=== PATIENT | female | born 1970 | race Caucasian/White ===

== ENCOUNTER 2021-11-05 17:51 | Emergency (ER) | payer MEDICARE ==
[2021-11-05] MEDS ORDERED: TORAdol 30 mg Injection IV ONE (18:24)
[2021-11-05] MEDS ORDERED: Zofran 4 MG/2 ML VIAL IV ONE (18:24)
[2021-11-05] MEDS ORDERED: Hydromorphone 1 mg/ml Injection IV ONE (18:24)
[2021-11-05] MEDS ORDERED: Sodium Chloride 0.9% 1000 ML 1,000 ML IV STA (18:24)
--- NOTE | 2021-11-05 18:29 | ERPHSYRPT ---
- History of Present Illness Time Seen by Provider: 11/05/21 18:15 Historian: patient Exam Limitations: no limitations Patient Subjective Stated Complaint: right flank pain that radiates to the front lower abdomen Triage Nursing Assessment: Pt brought to the ER by her niece, hypertensive, rates pain as 7/10, pain with palpatation to the right flank and right lower abdomen, c/o of constant pain after urination, hx of kidney stones, hematuria, pulses normal, skin n/w/d, denies N&V, last BM yesterday, last intake 3 hours ago Physician History: This is a 51-year-old white female patient of Dr. Shirley who has a history of type 2 diabetes, CHF, coronary artery disease, hypertension and elevated cholesterol. She also has had an appendectomy in the past. She has a history of nephrolithiasis and ureterolithiasis in the past and presents with worsening pain in the right flank which radiates around into the right lower quadrant/groin. Approximately 1 year ago she had similar symptoms and it was ureterolithiasis causing the problem. Patient rates the pain at a 7 out of 10. She has had no fever. She had no diarrhea. She has no chest pain. She has no shortness of breath. Patient believes she has some hematuria. Her symptoms worsen after she urinates. Timing/Duration: week(s) (1), intermittent, worse Quality: sharpness, stabbing Abdominal Pain Onset Location: flank (Right flank) Pain Radiation: RLQ, groin Severity of Pain-Max: moderate Severity of Pain-Current: moderate Modifying Factors: Improves With: urinating (Worsens) Associated Symptoms: nausea Allergies/Adverse Reactions: Penicillins Allergy (Verified 11/05/21 18:11) Home Medications: Albuterol Sulfate [Albuterol Sulfate Hfa] 2 inh PO Q4H 11/05/21 [History] Amitriptyline HCl 25 mg [Elavil 25 mg] 25 mg PO DAILY 11/05/21 [History] Amlodipine Besylate 2.5 mg PO DAILY 11/05/21 [History] Aripiprazole 10 mg [Abilify 10 MG] 10 mg PO DAILY 11/05/21 [History] Atorvastatin Calcium [Lipitor] 80 mg PO DAILY 11/05/21 [History] Gabapentin [Neurontin] 600 mg PO QID 11/05/21 [History] Meloxicam 7.5 mg PO DAILY 11/05/21 [History] Metformin HCl Xr 500 mg [Glucophage XR 500 MG] 500 mg PO DAILY 11/05/21 [History] Metoprolol Succinate 25 mg Xl* [Toprol-Xl 25MG Tablets] 25 mg PO DAILY 11/05/21 [History] Omeprazole 40 mg PO DAILY 11/05/21 [History] Sucralfate 1 gm [Carafate 1 GM] 1 g PO QID 11/05/21 [History] Tizanidine HCl 2 mg PO BID 11/05/21 [History] Trazodone HCl 50 mg [Desyrel 50 mg] 50 mg PO DAILY 11/05/21 [History] Travel Risk - International Travel Have you traveled outside of the country in past 3 weeks: No - Coronavirus Screening Are you exhibiting any of the following symptoms?: No Close contact with a COVID-19 positive Pt in past 14-21 Days: No - Vaccine Status Have you recieved a Covid-19 vaccination: Yes [employer]illing Machine [employer]: Moderna - Vaccination Dates Date of 2cond Vaccination (if applicable): 01/2021 - Review of Systems Constitutional: No Symptoms Eyes: No Symptoms Ears, Nose, & Throat: No Symptoms Respiratory: No Symptoms Cardiac: No Symptoms Abdominal/Gastrointestinal: Abdominal Pain Genitourinary Symptoms: Hematuria, Flank Pain (Right side) Musculoskeletal: No Symptoms Skin: No Symptoms Neurological: No Symptoms Psychological: No Symptoms Endocrine: No Symptoms Hematologic/Lymphatic: No Symptoms Immunological/Allergic: No Symptoms All Other Systems: Reviewed and Negative - Past Medical History Pertinent Past Medical History: Yes Cardiac History: Congestive Heart Failure, Coronary Artery Disease, High Cholesterol, Hypertension Endocrine Medical History: Diabetes Type II Other Medical History: hypocalcemia - Past Surgical History Past Surgical History: Yes Gastrointestinal: Appendectomy, Cholecystectomy Musculoskeletal: Joint Replacement, Orthopedic Surgery Female Surgical History: Section - Social History Smoking Status: Current every day smoker Exposure to second hand smoke: Yes Drug Use: marijuana Patient Lives Alone: No - Female History Hx Now: No - Nursing Vital Signs Nursing Vital Signs: Initial Vital Signs Temperature 97.6 F 11/05/21 17:55 Pulse Rate 84 11/05/21 17:55 Blood Pressure 159/92 11/05/21 17:55 O2 Sat by Pulse Oximetry 97 11/05/21 17:55 Pain Scale Pain Intensity 2 - Physical Exam SpO2: 97 - Course Nursing assessment & vital signs reviewed: Yes Ordered Tests: Active Orders 24 hr Category Date Time Status IV Insertion STAT Care 11/05/21 18:24 Active ABDOMEN AND PELVIS W/0 CONTRAS [CT] Stat Exams 11/05/21 18:25 Taken AMYLASE Stat Lab 11/05/21 18:05 Completed CBC W DIFF Stat Lab 11/05/21 18:05 Completed CMP Stat Lab 11/05/21 18:05 Completed CULTURE,URINE Stat Lab 11/05/21 17:58 Received LIPASE Stat Lab 11/05/21 18:05 Completed Lactic Acid Stat Lab 11/05/21 18:24 Completed UA W/RFX UR CULTURE Stat Lab 11/05/21 17:58 Completed Medication Summary Generic Name Dose Route Start Last Admin Trade Name Freq PRN Reason Stop Dose Admin Ceftriaxone Sodium/Dextrose 1 g in 50 mls @ 100 mls/hr 11/05/21 20:12 Rocephin 1 Gm-D5w 50 Ml Bag IV 11/05/21 20:41 STAT STA Discontinued Medications Generic Name Dose Route Start Last Admin Trade Name Freq PRN Reason Stop Dose Admin Hydromorphone HCl 1 mg 11/05/21 18:24 11/05/21 18:52 Hydromorphone 1 Mg/1ml Inj 1 Mg/Ml Syringe IV 11/05/21 18:25 1 mg STAT ONE Administration Hydromorphone HCl Confirm 11/05/21 18:46 Hydromorphone 1 Mg/1ml Inj 1 Mg/Ml Syringe Administered 11/05/21 18:47 Dose 1 mg .ROUTE .STK-MED ONE Sodium Chloride 1,000 mls @ 999 mls/hr 11/05/21 18:24 11/05/21 18:51 Sodium Chloride 0.9% 1000 Ml IV 11/05/21 19:24 999 mls/hr .Q1H1M STA Administration Sodium Chloride Confirm 11/05/21 18:46 Sodium Chloride 0.9% 1000 Ml Administered 11/05/21 18:47 Dose 1,000 mls @ ud .ROUTE .STK-MED ONE Ketorolac Tromethamine 30 mg 11/05/21 18:24 11/05/21 18:51 Ketorolac Tromethamine 30 Mg/Ml Inj IV 11/05/21 18:25 30 mg STAT ONE Administration Ketorolac Tromethamine Confirm 11/05/21 18:46 Ketorolac Tromethamine 30 Mg/Ml Inj Administered 11/05/21 18:47 Dose 30 mg .ROUTE .STK-MED ONE Ondansetron HCl 4 mg 11/05/21 18:24 11/05/21 18:51 Ondansetron Hcl 4 Mg/2 Ml Vial IV 11/05/21 18:25 4 mg STAT ONE Administration Ondansetron HCl Confirm 11/05/21 18:46 Ondansetron Hcl 4 Mg/2 Ml Vial Administered 11/05/21 18:47 Dose 4 mg .ROUTE .STK-MED ONE Lab/Rad Data: Laboratory Result Diagrams 11/05/21 18:05 11/05/21 18:05 Laboratory Results 11/05/21 11/05/21 11/05/21 Range/Units 18:24 18:05 18:05 WBC 8.1 (4.0-10.5) K/mm3 RBC 4.88 (4.1-5.4) M/mm3 Hgb 14.5 (12.0-16.0) gm/dl Hct 44.6 (35-47) % MCV 91.4 (78-100) fl MCH 29.7 (26-32) pg MCHC 32.5 (32-36) g/dl RDW 13.2 (11.5-14.0) % Plt Count 280 (150-450) K/mm3 MPV 10.4 (7.5-11.0) fl Gran % 49.8 (36.0-66.0) % Eos # (Auto) 0.23 (0-0.5) Absolute Lymphs (auto) 2.87 (1.0-4.6) Absolute Monos (auto) 0.89 (0.0-1.3) Lymphocytes % 35.6 (24.0-44.0) % Monocytes % 11.0 (0.0-12.0) % Eosinophils % 2.9 (0.00-5.0) % Basophils % 0.7 (0.0-0.4) % Absolute Granulocytes 4.01 (1.4-6.9) Basophils # 0.06 (0-0.4) Sodium 140 (137-145) mmol/L Potassium 4.0 (3.5-5.1) mmol/L Chloride 104 (98-107) mmol/L Carbon Dioxide 25 (22-30) mmol/L Anion Gap 15.2 H (5-15) MEQ/L BUN 16 (7-17) mg/dL Creatinine 0.88 (0.52-1.04) mg/dL Estimated GFR > 60.0 ML/MIN Glucose 104 (74-106) mg/dL Lactic Acid 1.0 (0.4-2.0) Calcium 9.5 (8.4-10.2) mg/dL Total Bilirubin 0.50 (0.2-1.3) mg/dL AST 29 (14-36) U/L ALT 31 (0-35) U/L Alkaline Phosphatase 101 (38-126) U/L Serum Total Protein 7.6 (6.3-8.2) g/dL Albumin 4.5 (3.5-5.0) g/dL Amylase 59 (30-110) U/L Lipase 334 H (23-300) U/L Urine Color (YELLOW) Urine Appearance (CLEAR) Urine pH (5-6) Ur Specific [place] (1.005-1.025) Urine Protein (Negative) Urine Ketones (NEGATIVE) Urine Blood (0-5) Chucho/ul Urine Nitrite (NEGATIVE) Urine Bilirubin (NEGATIVE) Urine Urobilinogen (0-1) mg/dL Ur Leukocyte Esterase (NEGATIVE) Urine WBC (Auto) (0-5) /HPF Urine RBC (Auto) (0-2) /HPF U Hyaline Cast (Auto) (0-2) /LPF U Epithel Cells (Auto) (FEW) /HPF Urine Bacteria (Auto) (NEGATIVE) /HPF Urine Mucus (Auto) (NEGATIVE) /HPF Urine Culture Reflexed (NO) Urine Glucose (NEGATIVE) mg/dL 11/05/21 Range/Units 17:58 WBC (4.0-10.5) K/mm3 RBC (4.1-5.4) M/mm3 Hgb (12.0-16.0) gm/dl Hct (35-47) % MCV (78-100) fl MCH (26-32) pg MCHC (32-36) g/dl RDW (11.5-14.0) % Plt Count (150-450) K/mm3 MPV (7.5-11.0) fl Gran % (36.0-66.0) % Eos # (Auto) (0-0.5) Absolute Lymphs (auto) (1.0-4.6) Absolute Monos (auto) (0.0-1.3) Lymphocytes % (24.0-44.0) % Monocytes % (0.0-12.0) % Eosinophils % (0.00-5.0) % Basophils % (0.0-0.4) % Absolute Granulocytes (1.4-6.9) Basophils # (0-0.4) Sodium (137-145) mmol/L Potassium (3.5-5.1) mmol/L Chloride (98-107) mmol/L Carbon Dioxide (22-30) mmol/L Anion Gap (5-15) MEQ/L BUN (7-17) mg/dL Creatinine (0.52-1.04) mg/dL Estimated GFR ML/MIN Glucose (74-106) mg/dL Lactic Acid (0.4-2.0) Calcium (8.4-10.2) mg/dL Total Bilirubin (0.2-1.3) mg/dL AST (14-36) U/L ALT (0-35) U/L Alkaline Phosphatase (38-126) U/L Serum Total Protein (6.3-8.2) g/dL Albumin (3.5-5.0) g/dL Amylase (30-110) U/L Lipase (23-300) U/L Urine Color YELLOW (YELLOW) Urine Appearance SLIGHTLY CLOUDY (CLEAR) Urine pH 5.0 (5-6) Ur Specific [place] 1.018 (1.005-1.025) Urine Protein NEGATIVE (Negative) Urine Ketones NEGATIVE (NEGATIVE) Urine Blood SMALL (0-5) [place]ucho/ul Urine Nitrite NEGATIVE (NEGATIVE) Urine Bilirubin NEGATIVE (NEGATIVE) Urine Urobilinogen NEGATIVE (0-1) mg/dL Ur Leukocyte Esterase MODERATE (NEGATIVE) Urine WBC (Auto) 3-5 (0-5) /HPF Urine RBC (Auto) 6-10 (0-2) /HPF U Hyaline Cast (Auto) 0-2 (0-2) /LPF U Epithel Cells (Auto) RARE (FEW) /HPF Urine Bacteria (Auto) FEW (NEGATIVE) /HPF Urine Mucus (Auto) SLIGHT (NEGATIVE) /HPF Urine Culture Reflexed YES (NO) Urine Glucose NEGATIVE (NEGATIVE) mg/dL - Progress Progress: improved Progress Note: 11/05/21 19:37 CAT scan of the abdomen pelvis without contrast shows no renal stones or evidence of obstructive uropathy. The remaining abdominal and pelvic CT scan is negative. Counseled pt/family regarding: lab results, diagnosis, need for follow-up, rad results - Departure Departure Disposition: Home Clinical Impression: Right sided abdominal pain, Right flank pain, UTI (urinary tract infection) Condition: Stable Critical Care Time: No Referrals: KILLIAN SHIRLEY DO [Primary Care Provider] - Follow up/PCP as directed Additional Instructions: Drink plenty of fluids. Take medication as prescribed. Follow-up with your [facility] physician for further management. Prescriptions: Smz/Tmp Ds Tablet [Bactrim Ds Tablet] 1 udtab PO BID #14 tablet Phenazopyridine HCl 200 mg [Pyridium 200 mg] 200 mg PO TID #6 tablet
[2021-11-05] MEDS ORDERED: Zofran 4 MG/2 ML VIAL ONE (18:46)
[2021-11-05] MEDS ORDERED: TORAdol 30 mg Injection ONE (18:46)
[2021-11-05] MEDS ORDERED: Hydromorphone 1 mg/ml Injection ONE (18:46)
[2021-11-05] MEDS ORDERED: Sodium Chloride 0.9% 1000 ML 1,000 ML ONE (18:46)
[2021-11-05 19:11] LABS: Absolute Neutrophil Ct (ANC) 4.01 (1.4-6.9); Basophil (Absolute #) 0.06 (0-0.4); Eosinophil % 2.9 % (0.00-5.0); Eosinophil (Absolute #) 0.23 (0-0.5); Hematocrit 44.6 % (35-47); Hemoglobin 14.5 gm/dl (12.0-16.0); Lymphocyte (Absolute #) 2.87 (1.0-4.6); Lymphocytes % 35.6 % (24.0-44.0); Mean Cell Volume 91.4 fl (78-100); Mean Corpuscular Hemoglobin 29.7 pg (26-32); Mean Corpuscular Hgb Concent. 32.5 g/dl (32-36); Mean Platelet Volume 10.4 fl (7.5-11.0); Monocyte (Absolute #) 0.89 (0.0-1.3); Neutrophil % 49.8 % (36.0-66.0); Platelet Count 280 K/mm3 (150-450); Red Blood Count 4.88 M/mm3 (4.1-5.4); Red Cell Distribution Width 13.2 % (11.5-14.0); White Blood Count 8.1 K/mm3 (4.0-10.5)
[2021-11-05 19:24] LABS: ALBUMIN 4.5 g/dL (3.5-5.0); ALKALINE PHOSPHATASE 101 U/L (38-126); AMYLASE 59 U/L (30-110); ANION GAP 15.2 MEQ/L (5-15); BLOOD UREA NITROGEN 16 mg/dL (7-17); CHLORIDE 104 mmol/L (98-107); Calcium 9.5 mg/dL (8.4-10.2); Carbon Dioxide 25 mmol/L (22-30); Creatinine 1 0.88 mg/dL (0.52-1.04); EST GLOMERULAR FILTRATION RATE > 60.0 ML/MIN; Glucose 104 mg/dL (74-106); LIPASE 334 U/L (23-300); SGOT/AST 29 U/L (14-36); SGPT/ALT 31 U/L (0-35); SODIUM 140 mmol/L (137-145); Total Protein 7.6 g/dL (6.3-8.2)
[2021-11-05 19:51] LABS: Appearance SLIGHTLY CLOUDY (CLEAR); Bacteria FEW /HPF (NEGATIVE); Bilirubin NEGATIVE (NEGATIVE); Blood SMALL Ery/ul (0-5); Epithelial Cells RARE /HPF (FEW); Glucose NEGATIVE (NEGATIVE); Hyaline Casts 0-2 /LPF (0-2); Ketones NEGATIVE (NEGATIVE); Leukocyte Esterase MODERATE (NEGATIVE); Mucus SLIGHT /HPF (NEGATIVE); Nitrite NEGATIVE (NEGATIVE); Protein,Urine Dip NEGATIVE (Negative); Specific Gravity 1.018 (1.005-1.025); Urobilinogen NEGATIVE mg/dL (0-1)
[2021-11-05 20:12] VITALS: BP 107/66; PULSE 64
[2021-11-05] MEDS ORDERED: ROCEPHIN 1 Gm-D5w 50 ml Bag** 1 G/50 ML IVPB IV STA (20:12)
[2021-11-05] MEDS ORDERED: ROCEPHIN 1 Gm-D5w 50 ml Bag** 1 G/50 ML IVPB IV ONE (20:13)
[2021-11-05 20:14] VITALS: O2SAT 97
--- NOTE | 2021-11-06 09:02 | XRAY ---
Indication: Right flank and back pain one week. History kidney stones. Multiple contiguous axial images obtained through the abdomen and pelvis without contrast using renal stone protocol. Comparison: None Lung bases demonstrates mild subsegmental atelectasis/scarring and small left lower lobe bleb. No infiltrate or effusion. Heart is not enlarged. No renal calculus or evidence for obstructive uropathy in either system. Noncontrasted stomach and bowel loops nonobstructed. Appendectomy and cholecystectomy reported. No free fluid/air. Remaining liver, pancreas, spleen, adrenal glands, kidneys, ureters, bladder, and uterus are unremarkable for noncontrast exam. Moderate scattered vascular calcifications without AAA. Osseous structures intact. No ventral or inguinal hernias. Impression: 1. Negative renal calculus or evidence for obstructive uropathy. 2. Remaining CT abdomen/pelvis without contrast exam is negative.
== END 2021-11-05 20:27 | disposition home or self-care (01) ==
LOC: ED 17:51
DX: N39.0 Urinary tract infection, site not specified (principal); R10.31 Right lower quadrant pain; I11.0 Hypertensive heart disease with heart failure; I50.9 Heart failure, unspecified; I25.10 Atherosclerotic heart disease of native coronary artery without angina pectoris; E78.5 Hyperlipidemia, unspecified; E11.9 Type 2 diabetes mellitus without complications; Z79.84 Long term (current) use of oral hypoglycemic drugs; Z87.442 Personal history of urinary calculi; Z72.0 Tobacco use; Z79.899 Other long term (current) drug therapy
CPT/HCPCS: 36000; 36415; 74176; 80053; 81001; 82150; 83605; 83690; 85025; 87086; 96374; 96375; 99284; J0696; J1170; J1885; J2405

== ENCOUNTER 2022-04-08 12:34 | Inpatient (IN) | payer MEDICARE ==
[2022-04-08] MEDS ORDERED: DUONEB 0.5-3 MG/3 ml Neb IH ONE ×2 (12:48→13:12)
[2022-04-08] MEDS ORDERED: SUBLIMAZE 100 MCG/2 ML IV ONE (12:49)
[2022-04-08] MEDS ORDERED: Zofran 4 MG/2 ML VIAL IV ONE (12:49)
[2022-04-08] MEDS ORDERED: Sodium Chloride 0.9% 1000 ML 1,000 ML IV STA (12:49)
[2022-04-08] MEDS ORDERED: TYLENOL 325 MG PO STA (12:51)
[2022-04-08] MEDS ORDERED: Zofran 4 MG/2 ML VIAL ONE (13:03)
[2022-04-08] MEDS ORDERED: SUBLIMAZE 100 MCG/2 ML ONE (13:04)
[2022-04-08] MEDS ORDERED: Sodium Chloride 0.9% 1000 ML 1,000 ML ONE (13:05)
[2022-04-08] MEDS ORDERED: TYLENOL 325 MG ONE (13:05)
[2022-04-08 13:26] LABS: Absolute Neutrophil Ct (ANC) 4.06 x10^3/uL (1.4-6.9); Basophil (Absolute #) 0.02 x10^3/uL (0-0.4); Hematocrit 42.4 % (35-47); Hemoglobin 13.4 g/dL (12.0-16.0); Lymphocyte (Absolute #) 0.63 x10^3/uL (1.0-4.6); Lymphocytes % 12.5 % (24.0-44.0); Mean Cell Volume 91.4 fL (78-100); Mean Corpuscular Hemoglobin 28.9 pg (26-32); Mean Corpuscular Hgb Concent. 31.6 g/dL (32-36); Mean Platelet Volume 9.9 fL (7.5-11.0); Monocyte (Absolute #) 0.23 x10^3/uL (0.0-1.3); Monocytes % 4.6 % (0.0-12.0); Neutrophil % 80.5 % (36.0-66.0); Platelet Count 203 x10^3/uL (150-450); Red Blood Count 4.64 x10^6/uL (4.1-5.4); Red Cell Distribution Width 12.8 % (11.5-14.0)
[2022-04-08 13:34] LABS: A-aADO2 539; ABG HEMOGLOBIN 13.1; ABG POTASSIUM 3.1 (3.5-5.1); ARTERIAL BLD GAS O2 SATURATION 99.2 % (95-100); ARTERIAL BLOOD GAS BASE EXCESS 0.6 (-2.0-2.0); ARTERIAL BLOOD GAS FIO2 100 %; ARTERIAL BLOOD GAS PCO2 47 mmHg (35-45); ARTERIAL BLOOD GAS PO2 115 mmHg (75-100); ARTERIAL BLOOD GAS pH 7.36 (7.35-7.45); CARBOXYHEMOGLOBIN 3.6 % THgb (0.0-6.9); HCO3- 26.6 (22-28); HGB O2 SAT 94.5 g/dF (94-100)
[2022-04-08 13:35] LABS: ABG SITE RIGHT BRACHIAL
--- NOTE | 2022-04-08 13:41 | ERPHSYRPT ---
- History of Present Illness Time Seen by Provider: 04/08/22 12:35 Source: patient, EMS Patient Subjective Stated Complaint: Pt was found sitting on a porch that she thought was for sale or rent which it wasn't and stated that she had been coloring a picture and there wasn't a picture found, pt was at 80% oxygen and so she was placed on oxygen until she got placed on the non rebreather to get her oxygen up to 93%, Triage Nursing Assessment: Pt brought to the ER by EMS, tachycardic, febrile, rates chronic back pain as 06/26, oxygen drops as soon as taken off or lower o xygen concentration, crackles heard in almost complete right, crackles in left base, wheezing, pulses normal, skin flushed/hot/dry, A&O x4 now Physician History: 50 years old female with history of tobacco abuse, hypertension, hyperlipidemia presented in the ER via EMS with chief complaint of altered mental status. Apparently patient was sitting in somebody's porch which she thought that houses for sale and it was actually not. She was also coloring a picture which was not there on EMS arrival her oxygen saturation was in 80s. She is given Solu-Medrol and DuoNeb, placed on nonrebreather and on presentation is around 93%. Patient also has a low-grade fever 100.1, reports that she got caught and pulled over. She also reports being working outside in the yard for the last few days. Patient is not confused on presentation and answering most of the questions a ppropriately. But according to friend she was not acting herself since yesterday. Denies any chest pain or palpitations. No abdominal pain nausea or vomiting. Timing/Duration: today Associated Symptoms: shortness of breath, fever, weakness Allergies/Adverse Reactions: Penicillins Allergy (Verified 04/08/22 12:58) Home Medications: Albuterol Sulfate [Albuterol Sulfate Hfa] 2 inh PO Q4HPRN PRN 11/05/21 [History] Amitriptyline HCl 25 mg [Elavil 25 mg] 25 mg PO HS 11/05/21 [History] Amlodipine Besylate 2.5 mg PO DAILY 11/05/21 [History] Aripiprazole 10 mg [Abilify 10 MG] 10 mg PO DAILY 11/05/21 [History] Atorvastatin Calcium [Lipitor] 80 mg PO HS 11/05/21 [History] Gabapentin [Neurontin] 600 mg PO QID 11/05/21 [History] Meloxicam 7.5 mg PO DAILY 11/05/21 [History] Metformin HCl Xr 500 mg [Glucophage XR 500 MG] 500 mg PO EVENING MEAL 11/05/21 [History] Metoprolol Succinate 25 mg Xl* [Toprol-Xl 25MG Tablets] 25 mg PO DAILY 11/05/21 [History] Omeprazole 40 mg PO DAILY 11/05/21 [History] Sucralfate 1 gm [Carafate 1 GM] 1 g PO QID 11/05/21 [History] Tizanidine HCl 2 mg PO BID 11/05/21 [History] Trazodone HCl 50 mg [Desyrel 50 mg] 50 mg PO HS 11/05/21 [History] Aspirin [Nish Chewable Aspirin] 81 mg PO DAILY 01/12/22 [History] Levothyroxine Sodium 25 Mcg [Synthroid 25 Mcg] 25 mcg PO DAILY 04/08/22 [History] clonazePAM [Clonazepam] 0.5 mg PO BID 04/08/22 [History] Travel Risk - International Travel Have you traveled outside of the country in past 3 weeks: No - Coronavirus Screening Are you exhibiting any of the following symptoms?: Yes Symptoms: Fever Close contact with a COVID-19 positive Pt in past 14-21 Days: No - Vaccine Status Have you recieved a Covid-19 vaccination: Yes Clerical Assistant: Moderna - Vaccination Dates Date of 2cond Vaccination (if applicable): 01/2021 - Review of Systems Constitutional: Fever, Fatigue, Weakness Eyes: No Symptoms Ears, Nose, & Throat: No Symptoms Respiratory: Dyspnea, Dyspnea on Exertion (LUGO) Cardiac: No Symptoms Abdominal/Gastrointestinal: No Symptoms Genitourinary Symptoms: No Symptoms Musculoskeletal: Back Pain Skin: No Symptoms Neurological: No Symptoms Endocrine: No Symptoms Hematologic/Lymphatic: No Symptoms Immunological/Allergic: No Symptoms - Past Medical History Pertinent Past Medical History: Yes Neurological History: No Pertinent History ENT History: Cataracts, Glaucoma Cardiac History: Congestive Heart Failure, Coronary Artery Disease, High Cholesterol, Hypertension Respiratory History: CHF, COPD Endocrine Medical History: Diabetes Type II Musculoskeletal History: No Pertinent History GI Medical History: No Pertinent History History: No Pertinent History Psycho-Social History: No Pertinent History Female Reproductive Disorders: No Pertinent History Other Medical History: hypocalcemia - Past Surgical History Past Surgical History: Yes Neuro Surgical History: No Pertinent History Cardiac: Cardiac Catheterization Respiratory: No Pertinent History Gastrointestinal: Appendectomy, Cholecystectomy Genitourinary: No Pertinent History Musculoskeletal: Joint Replacement, Orthopedic Surgery Female Surgical History: Section Other Surgical History: knee and shoulder surgery, carpal tunnel, coccyx removed - Social History Smoking Status: Current every day smoker How long have you smoked: age 10 Exposure to second hand smoke: Yes Drug Use: marijuana Patient Lives Alone: No - Nursing Vital Signs Nursing Vital Signs: Initial Vital Signs Temperature 100.1 F 04/08/22 12:41 Pulse Rate 134 H 04/08/22 12:41 Respiratory Rate 23 04/08/22 12:41 Blood Pressure 127/70 04/08/22 12:41 O2 Sat by Pulse Oximetry 96 04/08/22 12:41 Pain Scale Pain Intensity 4 - Physical Exam General Appearance: no apparent distress, alert Eye Exam: PERRL/EOMI, eyes nml inspection Ears, Nose, Throat Exam: normal ENT inspection, TMs normal, pharynx normal, moist mucous membranes Neck Exam: normal inspection, non-tender, supple, full range of motion Respiratory Exam: diminished breath sounds, accessory muscle use, c rackles/rales, rhonchi, wheezing Cardiovascular Exam: normal heart sounds, tachycardia Gastrointestinal/Abdomen Exam: soft, normal bowel sounds, No tenderness Back Exam: normal inspection, normal range of motion Extremity Exam: normal inspection, normal range of motion Neurologic Exam: alert, oriented x 3, cooperative, 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 nml as tested, sensation nml, No normal mood/affect, No motor deficits Skin Exam: normal color SpO2 Interpretation: normal SpO2: 93 O2 Delivery: Room Air Ordered Tests: Medication Summary Generic Name Dose Route Start Last Admin Trade Name Freq PRN Reason Stop Dose Admin Acetaminophen 650 mg 04/08/22 16:49 Acetaminophen 325 Mg Tablet PO 05/08/22 16:48 Q4H PRN PRN PAIN AND/OR FEVER Hydrocodone Bitart/Acetaminophen 1 tab 04/09/22 11:34 04/11/22 09:38 Hydrocodone/Apap 5/325 Mg Tablet PO 04/14/22 11:33 1 tab TID PRN PRN Administration PAIN Albuterol Sulfate 2 puff 04/09/22 07:27 Albuterol Common Canister Inhaler 05/09/22 07:26 Q4HPRN PRN SHORTNESS OF BREATH/WHEEZING Albuterol/Ipratropium 3 ml 04/09/22 15:00 04/11/22 17:57 Ipratropium/Albuterol Sulfate 3 Ml Ampul.Neb 05/09/22 14:59 3 ml Q4HRT ALISSON Administration Amitriptyline HCl 25 mg 04/08/22 22:00 04/10/22 21:29 Amitriptyline Hcl 25 Mg Tablet PO 05/08/22 21:59 25 mg HS ALISSON Administration Amlodipine Besylate 2.5 mg 04/09/22 10:00 04/11/22 09:37 Amlodipine Besylate 5 Mg Tablet PO 05/09/22 09:59 2.5 mg DAILY ALISSON Administration Aripiprazole 10 mg 04/09/22 10:00 04/11/22 09:35 Aripiprazole 10 Mg Tablet PO 05/09/22 09:59 10 mg DAILY ALISSON Administration Aspirin 81 mg 04/09/22 10:00 04/11/22 09:35 Aspirin 81 Mg Tablet.Ec PO 05/09/22 09:59 81 mg DAILY ALISSON Administration Clonazepam 0.5 mg 04/09/22 10:00 04/11/22 09:35 Clonazepam 0.5 Mg Tablet PO 05/09/22 09:59 0.5 mg BID ALISSON Administration Methylprednisolone Sodium 0 mg 04/10/22 14:00 04/11/22 13:50 Succinate 40 mg/ Sterile Water IV 05/10/22 13:59 40 mg 1 ml Q8HT ALISSON Administration Diphenhydramine HCl 50 mg 04/11/22 10:35 Diphenhydramine Hcl 25 Mg Capsule PO 05/11/22 10:34 Q4H PRN PRN ITCHING Gabapentin 600 mg 04/08/22 22:00 04/11/22 17:20 Gabapentin 300 Mg Capsule PO 05/08/22 21:59 600 mg QID ALISSON Administration Meropenem 1 gm/ Sodium 100 mls @ 200 mls/hr 04/11/22 14:00 04/11/22 13:52 Chloride IV 04/14/22 13:59 200 mls/hr Q8HT ALISSON Administration Insulin Human Lispro 0 unit 04/08/22 16:49 04/10/22 11:40 Insulin Lispro 1 Unit SQ 05/08/22 16:48 2 unit UD PRN Administration HYPERGLYCEMIA Levothyroxine Sodium 25 mcg 04/09/22 10:00 04/11/22 09:38 Levothyroxine Sodium 25 Mcg Tablet PO 05/09/22 09:59 25 mcg DAILY ALISSON Administration Meloxicam 7.5 mg 04/09/22 10:00 04/11/22 09:36 Meloxicam 7.5 Mg Tablet PO 05/09/22 09:59 7.5 mg DAILY ALISSON Administration Metformin HCl 500 mg 04/09/22 18:00 04/11/22 17:20 Metformin Hcl Er 500 Mg Tab PO 05/09/22 17:59 500 mg EVENING MEAL ALISSON Administration Metoprolol Succinate 25 mg 04/09/22 10:00 04/11/22 09:38 Metoprolol Succinate 25 Mg Xl Tab PO 05/09/22 09:59 25 mg DAILY ALISSON Administration Nicotine 21 mg 04/09/22 14:00 04/11/22 09:36 Nicotine 21 Mg/Patch Patch TOP 05/09/22 13:59 21 mg Q24H10 ALISSON Administration Ondansetron HCl 4 mg 04/08/22 16:49 Ondansetron Hcl 4 Mg/2 Ml Vial IV 05/08/22 16:48 Q6H PRN PRN NAUSEA/VOMITING Pantoprazole Sodium 40 mg 04/09/22 10:00 04/11/22 09:38 Protonix (Pantoprazole) 40 Mg Tablet PO 05/09/22 09:59 40 mg DAILY ALISSON Administration Simvastatin 40 mg 04/08/22 22:00 04/10/22 21:28 Simvastatin 20 Mg Tablet PO 05/08/22 21:59 40 mg HS ALISSON Administration Trazodone HCl 50 mg 04/08/22 22:00 04/10/22 21:29 Trazodone Hcl 50 Mg Tablet PO 05/08/22 21:59 50 mg HS ALISSON Administration Discontinued Medications Generic Name Dose Route Start Last Admin Trade Name Freq PRN Reason Stop Dose Admin Acetaminophen 975 mg 04/08/22 12:51 04/08/22 13:06 Acetaminophen 325 Mg Tablet PO 04/08/22 12:52 975 mg STAT STA Administration Acetaminophen Confirm 04/08/22 13:05 Acetaminophen 325 Mg Tablet Administered 04/08/22 13:06 Dose 975 mg .ROUTE .STK-MED ONE Albuterol/Ipratropium Confirm 04/08/22 12:48 Ipratropium/Albuterol Sulfate 3 Ml Ampul.Neb Administered 04/08/22 12:49 Dose 3 ml IH .STK-MED ONE Albuterol/Ipratropium 3 ml 04/08/22 13:12 04/08/22 13:13 Ipratropium/Albuterol Sulfate 3 Ml Ampul.Neb IH 04/08/22 13:13 3 ml STAT ONE Administration Albuterol/Ipratropium 3 ml 04/08/22 19:00 04/09/22 06:32 Ipratropium/Albuterol Sulfate 3 Ml Ampul.Neb 05/08/22 18:59 3 ml Q6HRT ALISSON Administration Clonazepam 0.5 mg 04/08/22 22:00 04/08/22 21:26 Clonazepam 2 Mg Tablet PO 05/08/22 21:59 0.5 mg BID ALISSON Administration Methylprednisolone Sodium 0 mg 04/08/22 18:00 04/10/22 06:10 Succinate 80 mg/ Sterile Water IV 05/08/22 17:59 80 mg 2 ml Q6HT ALISSON Administration Fentanyl Citrate 50 mcg 04/08/22 12:49 04/08/22 13:06 Fentanyl Citrate 100 Mcg/2 Ml* Vial IV 04/08/22 12:50 50 mcg STAT ONE Administration Fentanyl Citrate Confirm 04/08/22 13:04 Fentanyl Citrate 100 Mcg/2 Ml* Vial Administered 04/08/22 13:05 Dose 100 mcg .ROUTE .STK-MED ONE Sodium Chloride 1,000 mls @ 999 mls/hr 04/08/22 12:49 04/08/22 14:08 Sodium Chloride 0.9% 1000 Ml IV 04/08/22 13:49 Infused .Q1H1M STA Infusion Sodium Chloride Confirm 04/08/22 13:05 Sodium Chloride 0.9% 1000 Ml Administered 04/08/22 13:06 Dose 1,000 mls @ ud .ROUTE .STK-MED ONE Levofloxacin/Dextrose 750 mg in 150 mls @ 100 mls/hr 04/08/22 14:09 04/08/22 16:34 Levofloxacin 750mg/150ml D5w IV 04/08/22 15:38 Infused STAT STA Infusion Aztreonam 2 gm/ Sodium 100 mls @ 200 mls/hr 04/08/22 14:10 04/08/22 14:31 Chloride IV 04/08/22 14:39 200 mls/hr STAT ONE Administration Magnesium Sulfate/Dextrose 100 mls @ 100 mls/hr 04/08/22 14:30 04/08/22 15:53 Magnesium 1 Gm / 100 Ml D5w IV 04/08/22 16:29 100 mls/hr Q1H ALISSON Administration Levofloxacin/Dextrose Confirm 04/08/22 14:44 Levofloxacin 750mg/150ml D5w Administered 04/08/22 14:45 Dose 750 mg in 150 mls @ ud IV .STK-MED ONE Magnesium Sulfate/Dextrose Confirm 04/08/22 15:19 Magnesium 1 Gm / 100 Ml D5w Administered 04/08/22 15:20 Dose 100 mls @ ud IV .STK-MED ONE Magnesium Sulfate/Dextrose Confirm 04/08/22 15:52 Magnesium 1 Gm / 100 Ml D5w Administered 04/08/22 15:53 Dose 100 mls @ ud IV .STK-MED ONE Aztreonam 1 gm/ Sodium 100 mls @ 200 mls/hr 04/08/22 18:00 04/10/22 06:10 Chloride IV 04/11/22 17:59 200 mls/hr Q6HT ALISSON Administration Sodium Chloride 1,000 mls @ 100 mls/hr 04/08/22 16:49 04/08/22 18:05 Sodium Chloride 0.9% 1000 Ml IV 05/08/22 16:48 100 mls/hr .Q10H ALISSON Administration Levofloxacin/Dextrose 500 mg in 100 mls @ 100 mls/hr 04/09/22 10:00 04/11/22 11:03 Levofloxacin 500mg/100ml D5w IV 05/09/22 09:59 Not Given Q24H10 ALISSON Potassium Chloride/Sodium Chloride 1,000 mls @ 100 mls/hr 04/08/22 23:45 04/10/22 08:56 Sodium Chloride 0.9% W/ 20 Meq Kcl/Liter IV 05/08/22 23:44 100 mls/hr .Q10H ALISSON Administration Methylprednisolone Sodium Succinate Confirm 04/10/22 21:26 Methylprednisolone Sod Suc 40m 40 Mg/Ml Vial Administered 04/10/22 21:27 Dose 40 mg .ROUTE .STK-MED ONE Methylprednisolone Sodium Succinate Confirm 04/11/22 07:20 Methylprednisolone Sod Suc 40m 40 Mg/Ml Vial Administered 04/11/22 07:21 Dose 40 mg .ROUTE .STK-MED ONE Morphine Sulfate 2 mg 04/08/22 16:49 Morphine Sulfate 2 Mg/Ml Inj IV 04/13/22 16:48 Q4H PRN PRN PAIN Nicotine 21 mg 04/08/22 14:51 04/08/22 14:56 Nicotine 21 Mg/Patch Patch TOP 04/08/22 14:52 21 mg STAT ONE Administration Ondansetron HCl 4 mg 04/08/22 12:49 04/08/22 13:07 Ondansetron Hcl 4 Mg/2 Ml Vial IV 04/08/22 12:50 4 mg STAT ONE Administration Ondansetron HCl Confirm 04/08/22 13:03 Ondansetron Hcl 4 Mg/2 Ml Vial Administered 04/08/22 13:04 Dose 4 mg .ROUTE .STK-MED ONE Pantoprazole Sodium 40 mg 04/08/22 18:00 04/08/22 18:05 Pantoprazole 40 Mg Vial IV 05/08/22 17:59 40 mg Q24H10 ALISSON Administration Lab/Rad Data: Laboratory Result Diagrams 04/08/22 13:15 04/08/22 13:15 Laboratory Results 04/08/22 04/08/22 04/08/22 Range/Units 16:15 16:01 15:26 WBC (4.0-10.5) x10^3/uL RBC (4.1-5.4) x10^6/uL Hgb (12.0-16.0) g/dL Hct (35-47) % MCV (78-100) fL MCH (26-32) pg MCHC (32-36) g/dL RDW (11.5-14.0) % Plt Count (150-450) x10^3/uL MPV (7.5-11.0) fL Gran % (36.0-66.0) % Immature Gran % (Auto) (0.00-0.4) % Nucleat RBC Rel Count (0.00-0.1) % Eos # (Auto) (0-0.5) x10^3/uL Immature Gran # (Auto) (0.00-0.03) x10^3u/L Absolute Lymphs (auto) (1.0-4.6) x10^3/uL Absolute Monos (auto) (0.0-1.3) x10^3/uL Absolute Nucleated RBC (0.00-0.01) x10^3u/L Lymphocytes % (24.0-44.0) % Monocytes % (0.0-12.0) % Eosinophils % (0.00-5.0) % Basophils % (0.0-0.4) % Absolute Granulocytes (1.4-6.9) x10^3/uL Basophils # (0-0.4) x10^3/uL Puncture Site pCO2 (35-45) mmHg pO2 (75-100) mmHg Base Excess (-2.0-2.0) O2 Saturation (94-100) g/dF ABG pH (7.35-7.45) ABG HCO3 (22-28) ABG O2 Sat (Measured) (95-100) % Mukesh Test A-a Gradient a/A Ratio Hemoglobin Carboxyhemoglobin (0.0-6.9) % THgb Methemoglobin (1.4-1.5) % Temperature C POC O2 Flow Rate % Sodium (137-145) mmol/L Potassium (3.5-5.1) mmol/L Chloride (98-107) mmol/L Carbon Dioxide (22-30) mmol/L Anion Gap (5-15) MEQ/L BUN (7-17) mg/dL Creatinine (0.52-1.04) mg/dL Estimated GFR ML/MIN Glucose (74-106) mg/dL POC Glucometer 220 H (74 to 106) mg/dL Lactic Acid 2.5 H (0.4-2.0) Calcium (8.4-10.2) mg/dL Magnesium (1.6-2.3) mg/dL Total Bilirubin (0.2-1.3) mg/dL AST (14-36) U/L ALT (0-35) U/L Alkaline Phosphatase (38-126) U/L Creatine Kinase (30-135) U/L Troponin I 0.067 H* (0.000-0.034) ng/mL NT-Pro-B Natriuret Pep (0-900) pg/mL Serum Total Protein (6.3-8.2) g/dL Albumin (3.5-5.0) g/dL Lipase (23-300) U/L Procalcitonin (0.030-0.080) ng/mL Urinalys Dipstick Clnc Urine Color (YELLOW) Urine Appearance (CLEAR) Urine pH (5-6) Ur Specific [place] (1.005-1.025) POC Urine Protein Conf (Negative) Urine Ketones (NEGATIVE) Urine Nitrite (NEGATIVE) Urine Bilirubin (NEGATIVE) Urine Urobilinogen (0-1) mg/dL Urine Leukocytes (NEGATIVE) Urine WBC (Auto) (0-5) /HPF Urine RBC (Auto) (0-2) /HPF U Epithel Cells (Auto) (FEW) /HPF Urine Bacteria (Auto) (NEGATIVE) /HPF Urine RBC (0-5) Chucho/ul Urine Mucus (Auto) (NEGATIVE) /HPF Ur Culture Indicated? Urine Glucose (NEGATIVE) mg/dL Urine Opiates Level (NEGATIVE) Ur Methadone (NEGATIVE) Urine Barbiturates (NEGATIVE) Ur Phencyclidine (PCP) (NEGATIVE) Urine Amphetamine (NEGATIVE) U Benzodiazepine Level (NEGATIVE) Urine Cocaine (NEGATIVE) Urine Marijuana (THC) (NEGATIVE) Influenza Type A Ag (NEGATIVE) Influenza Type B Ag (NEGATIVE) RSV (PCR) (Negative) SARS-CoV-2 (PCR) (NEGATIVE) 04/08/22 04/08/22 04/08/22 Range/Units 15:17 15:16 14:50 WBC (4.0-10.5) x10^3/uL RBC (4.1-5.4) x10^6/uL Hgb (12.0-16.0) g/dL Hct (35-47) % MCV (78-100) fL MCH (26-32) pg MCHC (32-36) g/dL RDW (11.5-14.0) % Plt Count (150-450) x10^3/uL MPV (7.5-11.0) fL Gran % (36.0-66.0) % Immature Gran % (Auto) (0.00-0.4) % Nucleat RBC Rel Count (0.00-0.1) % Eos # (Auto) (0-0.5) x10^3/uL Immature Gran # (Auto) (0.00-0.03) x10^3u/L Absolute Lymphs (auto) (1.0-4.6) x10^3/uL Absolute Monos (auto) (0.0-1.3) x10^3/uL Absolute Nucleated RBC (0.00-0.01) x10^3u/L Lymphocytes % (24.0-44.0) % Monocytes % (0.0-12.0) % Eosinophils % (0.00-5.0) % Basophils % (0.0-0.4) % Absolute Granulocytes (1.4-6.9) x10^3/uL Basophils # (0-0.4) x10^3/uL Puncture Site pCO2 (35-45) mmHg pO2 (75-100) mmHg Base Excess (-2.0-2.0) O2 Saturation (94-100) g/dF ABG pH (7.35-7.45) ABG HCO3 (22-28) ABG O2 Sat (Measured) (95-100) % Mukesh Test A-a Gradient a/A Ratio Hemoglobin Carboxyhemoglobin (0.0-6.9) % THgb Methemoglobin (1.4-1.5) % Temperature C POC O2 Flow Rate % Sodium (137-145) mmol/L Potassium (3.5-5.1) mmol/L Chloride (98-107) mmol/L Carbon Dioxide (22-30) mmol/L Anion Gap (5-15) MEQ/L BUN (7-17) mg/dL Creatinine (0.52-1.04) mg/dL Estimated GFR ML/MIN Glucose (74-106) mg/dL POC Glucometer (74 to 106) mg/dL Lactic Acid (0.4-2.0) Calcium (8.4-10.2) mg/dL Magnesium (1.6-2.3) mg/dL Total Bilirubin (0.2-1.3) mg/dL AST (14-36) U/L ALT (0-35) U/L Alkaline Phosphatase (38-126) U/L Creatine Kinase (30-135) U/L Troponin I (0.000-0.034) ng/mL NT-Pro-B Natriuret Pep (0-900) pg/mL Serum Total Protein (6.3-8.2) g/dL Albumin (3.5-5.0) g/dL Lipase (23-300) U/L Procalcitonin (0.030-0.080) ng/mL Urinalys Dipstick Clnc MAIN LAB Urine Color YELLOW (YELLOW) Urine Appearance CLEAR (CLEAR) Urine pH 5.0 (5-6) Ur Specific [place] 1.010 (1.005-1.025) POC Urine Protein Conf NEGATIVE (Negative) Urine Ketones NEGATIVE (NEGATIVE) Urine Nitrite NEGATIVE (NEGATIVE) Urine Bilirubin NEGATIVE (NEGATIVE) Urine Urobilinogen 0.2 (0-1) mg/dL Urine Leukocytes NEGATIVE (NEGATIVE) Urine WBC (Auto) 0-2 (0-5) /HPF Urine RBC (Auto) NONE (0-2) /HPF U Epithel Cells (Auto) NONE (FEW) /HPF Urine Bacteria (Auto) RARE (NEGATIVE) /HPF Urine RBC NEGATIVE (0-5) Chucho/ul Urine Mucus (Auto) SLIGHT (NEGATIVE) /HPF Ur Culture Indicated? NO Urine Glucose NEGATIVE (NEGATIVE) mg/dL Urine Opiates Level POSITIVE (NEGATIVE) Ur Methadone NEGATIVE (NEGATIVE) Urine Barbiturates NEGATIVE (NEGATIVE) Ur Phencyclidine (PCP) NEGATIVE (NEGATIVE) Urine Amphetamine POSITIVE (NEGATIVE) U Benzodiazepine Level POSITIVE (NEGATIVE) Urine Cocaine NEGATIVE (NEGATIVE) Urine Marijuana (THC) POSITIVE (NEGATIVE) Influenza Type A Ag NEGATIVE (NEGATIVE) Influenza Type B Ag NEGATIVE (NEGATIVE) RSV (PCR) NEGATIVE (Negative) SARS-CoV-2 (PCR) NEGATIVE (NEGATIVE) 04/08/22 04/08/22 04/08/22 Range/Units 13:29 13:25 13:15 WBC (4.0-10.5) x10^3/uL RBC (4.1-5.4) x10^6/uL Hgb (12.0-16.0) g/dL Hct (35-47) % MCV (78-100) fL MCH (26-32) pg MCHC (32-36) g/dL RDW (11.5-14.0) % Plt Count (150-450) x10^3/uL MPV (7.5-11.0) fL Gran % (36.0-66.0) % Immature Gran % (Auto) (0.00-0.4) % Nucleat RBC Rel Count (0.00-0.1) % Eos # (Auto) (0-0.5) x10^3/uL Immature Gran # (Auto) (0.00-0.03) x10^3u/L Absolute Lymphs (auto) (1.0-4.6) x10^3/uL Absolute Monos (auto) (0.0-1.3) x10^3/uL Absolute Nucleated RBC (0.00-0.01) x10^3u/L Lymphocytes % (24.0-44.0) % Monocytes % (0.0-12.0) % Eosinophils % (0.00-5.0) % Basophils % (0.0-0.4) % Absolute Granulocytes (1.4-6.9) x10^3/uL Basophils # (0-0.4) x10^3/uL Puncture Site RIGHT BRACHIAL pCO2 47 H (35-45) mmHg pO2 115 H (75-100) mmHg Base Excess 0.6 (-2.0-2.0) O2 Saturation 94.5 (94-100) g/dF ABG pH 7.36 (7.35-7.45) ABG HCO3 26.6 (22-28) ABG O2 Sat (Measured) 99.2 (95-100) % Umkesh Test NOT APPLICABLE A-a Gradient 539 a/A Ratio 0.18 Hemoglobin 13.1 Carboxyhemoglobin 3.6 (0.0-6.9) % THgb Methemoglobin 1.0 L (1.4-1.5) % Temperature 37.0 C POC O2 Flow Rate 100 % Sodium (137-145) mmol/L Potassium 3.1 L (3.5-5.1) mmol/L Chloride (98-107) mmol/L Carbon Dioxide (22-30) mmol/L Anion Gap (5-15) MEQ/L BUN (7-17) mg/dL Creatinine (0.52-1.04) mg/dL Estimated GFR ML/MIN Glucose (74-106) mg/dL POC Glucometer (74 to 106) mg/dL Lactic Acid 3.0 H (0.4-2.0) Calcium (8.4-10.2) mg/dL Magnesium (1.6-2.3) mg/dL Total Bilirubin (0.2-1.3) mg/dL AST (14-36) U/L ALT (0-35) U/L Alkaline Phosphatase (38-126) U/L Creatine Kinase (30-135) U/L Troponin I (0.000-0.034) ng/mL NT-Pro-B Natriuret Pep (0-900) pg/mL Serum Total Protein (6.3-8.2) g/dL Albumin (3.5-5.0) g/dL Lipase (23-300) U/L Procalcitonin 5.910 H* (0.030-0.080) ng/mL Urinalys Dipstick Clnc Urine Color (YELLOW) Urine Appearance (CLEAR) Urine pH (5-6) Ur Specific [place] (1.005-1.025) POC Urine Protein Conf (Negative) Urine Ketones (NEGATIVE) Urine Nitrite (NEGATIVE) Urine Bilirubin (NEGATIVE) Urine Urobilinogen (0-1) mg/dL Urine Leukocytes (NEGATIVE) Urine WBC (Auto) (0-5) /HPF Urine RBC (Auto) (0-2) /HPF U Epithel Cells (Auto) (FEW) /HPF Urine Bacteria (Auto) (NEGATIVE) /HPF Urine RBC (0-5) Chucho/ul Urine Mucus (Auto) (NEGATIVE) /HPF Ur Culture Indicated? Urine Glucose (NEGATIVE) mg/dL Urine Opiates Level (NEGATIVE) Ur Methadone (NEGATIVE) Urine Barbiturates (NEGATIVE) Ur Phencyclidine (PCP) (NEGATIVE) Urine Amphetamine (NEGATIVE) U Benzodiazepine Level (NEGATIVE) Urine Cocaine (NEGATIVE) Urine Marijuana (THC) (NEGATIVE) Influenza Type A Ag (NEGATIVE) Influenza Type B Ag (NEGATIVE) RSV (PCR) (Negative) SARS-CoV-2 (PCR) (NEGATIVE) 04/08/22 04/08/22 04/08/22 Range/Units 13:15 13:15 13:15 WBC 5.0 (4.0-10.5) x10^3/uL RBC 4.64 (4.1-5.4) x10^6/uL Hgb 13.4 (12.0-16.0) g/dL Hct 42.4 (35-47) % MCV 91.4 (78-100) fL MCH 28.9 (26-32) pg MCHC 31.6 L (32-36) g/dL RDW 12.8 (11.5-14.0) % Plt Count 203 (150-450) x10^3/uL MPV 9.9 (7.5-11.0) fL Gran % 80.5 H (36.0-66.0) % Immature Gran % (Auto) 0.0 (0.00-0.4) % Nucleat RBC Rel Count 0.0 (0.00-0.1) % Eos # (Auto) 0.10 (0-0.5) x10^3/uL Immature Gran # (Auto) 0.00 (0.00-0.03) x10^3u/L Absolute Lymphs (auto) 0.63 L (1.0-4.6) x10^3/uL Absolute Monos (auto) 0.23 (0.0-1.3) x10^3/uL Absolute Nucleated RBC 0.00 (0.00-0.01) x10^3u/L Lymphocytes % 12.5 L (24.0-44.0) % Monocytes % 4.6 (0.0-12.0) % Eosinophils % 2.0 (0.00-5.0) % Basophils % 0.4 (0.0-0.4) % Absolute Granulocytes 4.06 (1.4-6.9) x10^3/uL Basophils # 0.02 (0-0.4) x10^3/uL Puncture Site pCO2 (35-45) mmHg pO2 (75-100) mmHg Base Excess (-2.0-2.0) O2 Saturation (94-100) g/dF ABG pH (7.35-7.45) ABG HCO3 (22-28) ABG O2 Sat (Measured) (95-100) % Mukesh Test A-a Gradient a/A Ratio Hemoglobin Carboxyhemoglobin (0.0-6.9) % THgb Methemoglobin (1.4-1.5) % Temperature C POC O2 Flow Rate % Sodium 138 (137-145) mmol/L Potassium 3.6 (3.5-5.1) mmol/L Chloride 101 (98-107) mmol/L Carbon Dioxide 31 H (22-30) mmol/L Anion Gap 9.4 (5-15) MEQ/L BUN 10 (7-17) mg/dL Creatinine 0.82 (0.52-1.04) mg/dL Estimated GFR > 60.0 ML/MIN Glucose 122 H (74-106) mg/dL POC Glucometer (74 to 106) mg/dL Lactic Acid (0.4-2.0) Calcium 8.8 (8.4-10.2) mg/dL Magnesium 1.4 L (1.6-2.3) mg/dL Total Bilirubin 0.80 (0.2-1.3) mg/dL AST 41 H (14-36) U/L ALT 31 (0-35) U/L Alkaline Phosphatase 127 H (38-126) U/L Creatine Kinase 61 (30-135) U/L Troponin I 0.045 H* (0.000-0.034) ng/mL NT-Pro-B Natriuret Pep 57.9 (0-900) pg/mL Serum Total Protein 6.5 (6.3-8.2) g/dL Albumin 3.4 L (3.5-5.0) g/dL Lipase 39 (23-300) U/L Procalcitonin (0.030-0.080) ng/mL Urinalys Dipstick Clnc Urine Color (YELLOW) Urine Appearance (CLEAR) Urine pH (5-6) Ur Specific [place] (1.005-1.025) POC Urine Protein Conf (Negative) Urine Ketones (NEGATIVE) Urine Nitrite (NEGATIVE) Urine Bilirubin (NEGATIVE) Urine Urobilinogen (0-1) mg/dL Urine Leukocytes (NEGATIVE) Urine WBC (Auto) (0-5) /HPF Urine RBC (Auto) (0-2) /HPF U Epithel Cells (Auto) (FEW) /HPF Urine Bacteria (Auto) (NEGATIVE) /HPF Urine RBC (0-5) Chucho/ul Urine Mucus (Auto) (NEGATIVE) /HPF Ur Culture Indicated? Urine Glucose (NEGATIVE) mg/dL Urine Opiates Level (NEGATIVE) Ur Methadone (NEGATIVE) Urine Barbiturates (NEGATIVE) Ur Phencyclidine (PCP) (NEGATIVE) Urine Amphetamine (NEGATIVE) U Benzodiazepine Level (NEGATIVE) Urine Cocaine (NEGATIVE) Urine Marijuana (THC) (NEGATIVE) Influenza Type A Ag (NEGATIVE) Influenza Type B Ag (NEGATIVE) RSV (PCR) (Negative) SARS-CoV-2 (PCR) (NEGATIVE) 04/08/22 Range/Units 12:45 WBC (4.0-10.5) x10^3/uL RBC (4.1-5.4) x10^6/uL Hgb (12.0-16.0) g/dL Hct (35-47) % MCV (78-100) fL MCH (26-32) pg MCHC (32-36) g/dL RDW (11.5-14.0) % Plt Count (150-450) x10^3/uL MPV (7.5-11.0) fL Gran % (36.0-66.0) % Immature Gran % (Auto) (0.00-0.4) % Nucleat RBC Rel Count (0.00-0.1) % Eos # (Auto) (0-0.5) x10^3/uL Immature Gran # (Auto) (0.00-0.03) x10^3u/L Absolute Lymphs (auto) (1.0-4.6) x10^3/uL Absolute Monos (auto) (0.0-1.3) x10^3/uL Absolute Nucleated RBC (0.00-0.01) x10^3u/L Lymphocytes % (24.0-44.0) % Monocytes % (0.0-12.0) % Eosinophils % (0.00-5.0) % Basophils % (0.0-0.4) % Absolute Granulocytes (1.4-6.9) x10^3/uL Basophils # (0-0.4) x10^3/uL Puncture Site pCO2 (35-45) mmHg pO2 (75-100) mmHg Base Excess (-2.0-2.0) O2 Saturation (94-100) g/dF ABG pH (7.35-7.45) ABG HCO3 (22-28) ABG O2 Sat (Measured) (95-100) % Mukesh Test A-a Gradient a/A Ratio Hemoglobin Carboxyhemoglobin (0.0-6.9) % THgb Methemoglobin (1.4-1.5) % Temperature C POC O2 Flow Rate % Sodium (137-145) mmol/L Potassium (3.5-5.1) mmol/L Chloride (98-107) mmol/L Carbon Dioxide (22-30) mmol/L Anion Gap (5-15) MEQ/L BUN (7-17) mg/dL Creatinine (0.52-1.04) mg/dL Estimated GFR ML/MIN Glucose (74-106) mg/dL POC Glucometer 114 H (74 to 106) mg/dL Lactic Acid (0.4-2.0) Calcium (8.4-10.2) mg/dL Magnesium (1.6-2.3) mg/dL Total Bilirubin (0.2-1.3) mg/dL AST (14-36) U/L ALT (0-35) U/L Alkaline Phosphatase (38-126) U/L Creatine Kinase (30-135) U/L Troponin I (0.000-0.034) ng/mL NT-Pro-B Natriuret Pep (0-900) pg/mL Serum Total Protein (6.3-8.2) g/dL Albumin (3.5-5.0) g/dL Lipase (23-300) U/L Procalcitonin (0.030-0.080) ng/mL Urinalys Dipstick Clnc Urine Color (YELLOW) Urine Appearance (CLEAR) Urine pH (5-6) Ur Specific [place] (1.005-1.025) POC Urine Protein Conf (Negative) Urine Ketones (NEGATIVE) Urine Nitrite (NEGATIVE) Urine Bilirubin (NEGATIVE) Urine Urobilinogen (0-1) mg/dL Urine Leukocytes (NEGATIVE) Urine WBC (Auto) (0-5) /HPF Urine RBC (Auto) (0-2) /HPF U Epithel Cells (Auto) (FEW) /HPF Urine Bacteria (Auto) (NEGATIVE) /HPF Urine RBC (0-5) Chucho/ul Urine Mucus (Auto) (NEGATIVE) /HPF Ur Culture Indicated? Urine Glucose (NEGATIVE) mg/dL Urine Opiates Level (NEGATIVE) Ur Methadone (NEGATIVE) Urine Barbiturates (NEGATIVE) Ur Phencyclidine (PCP) (NEGATIVE) Urine Amphetamine (NEGATIVE) U Benzodiazepine Level (NEGATIVE) Urine Cocaine (NEGATIVE) Urine Marijuana (THC) (NEGATIVE) Influenza Type A Ag (NEGATIVE) Influenza Type B Ag (NEGATIVE) RSV (PCR) (Negative) SARS-CoV-2 (PCR) (NEGATIVE) - Progress Progress: improved, re-examined Progress Note: 04/08/22 14:34 51 years old is evaluated in the ER with respiratory distress and altered mental status. Patient is not confused or altered on presentation but has difficulty breathing, given another DuoNeb and continuing on route nonrebreather followed by 6 L oxygen and is feeling much better on reevaluation. She has diffuse crackles and rhonchi on the right side and chest x-ray consistent with right- sided pneumonia. Started on broad-spectrum antibiotics. Has normal white count but lactate of 3.0 and procalcitonin of 5.9. I have also obtain CT head which is negative. Discussed with Dr. Lua, reviewed history, work-up and patient is excepted for admission. Discussed with .: Fr[place] Will see patient in: hospital (full admit) Counseled pt/family regarding: drug and/or alcohol abuse, lab results, diagnosis , rad results, smoking cessation - Departure Clinical Impression: Pneumonia, Altered mental status, Hypomagnesemia Respiratory failure Qualifiers: Chronicity: acute Respiratory failure complication: hypoxia Qualified Code(s): J96.01 - Acute respiratory failure with hypoxia Condition: Good Critical Care Time: Yes Critical Care Time(excluding separately billable procedures): Critical 30-74 mins
[2022-04-08 13:53] LABS: ALBUMIN 3.4 g/dL (3.5-5.0); ALKALINE PHOSPHATASE 127 U/L (38-126); ANION GAP 9.4 MEQ/L (5-15); BLOOD UREA NITROGEN 10 mg/dL (7-17); CHLORIDE 101 mmol/L (98-107); CK-Creatinine Phosphokinase 61 U/L (30-135); Calcium 8.8 mg/dL (8.4-10.2); Carbon Dioxide 31 mmol/L (22-30); Creatinine 1 0.82 mg/dL (0.52-1.04); EST GLOMERULAR FILTRATION RATE > 60.0 ML/MIN; Glucose 122 mg/dL (74-106); LIPASE 39 U/L (23-300); MAGNESIUM 1.4 mg/dL (1.6-2.3); NT PRO BNP 57.9 pg/mL (0-900); Potassium 3.6 mmol/L (3.5-5.1); SGOT/AST 41 U/L (14-36); SGPT/ALT 31 U/L (0-35); SODIUM 138 mmol/L (137-145); Total Protein 6.5 g/dL (6.3-8.2)
--- NOTE | 2022-04-08 13:54 | XRAY ---
Indication: Acute mental status change. Short of breath. Fever. Multiple contiguous axial images obtained through the head without contrast. Comparison: None Normal appearing brain parenchyma, ventricles, and bony calvarium for patient's age. Paranasal sinuses and mastoid air cells are clear. Impression: Normal CT head without contrast exam.
[2022-04-08] MEDS ORDERED: LEVOFLOXACIN 750MG/150ML D5W 750 MG/150 ML BAG IV STA (14:09)
[2022-04-08] MEDS ORDERED: AZACTAM 1 GM*** 2 GM in Sodium Chloride 0.9% 100 ML IV ONE (14:10)
[2022-04-08] MEDS ORDERED: LEVOFLOXACIN 750MG/150ML D5W 750 MG/150 ML BAG IV ONE (14:44)
[2022-04-08] MEDS ORDERED: Nicoderm CQ 21 MG TOP ONE (14:51)
[2022-04-08] MEDS ORDERED: Magnesium 1 Gm / 100 Ml D5W*** 100 ML IV ONE ×2 (15:19→15:52)
[2022-04-08] MEDS: Magnesium 1 Gm / 100 Ml D5W*** 100 ML IV SCH ×2 (15:20→15:53)
[2022-04-08 15:32] LABS: INFLUENZA A NEGATIVE (NEGATIVE); INFLUENZA B NEGATIVE (NEGATIVE); RESPIRATORY SYNCTIAL VIRUS NEGATIVE (Negative); SARS-CoV-2 Xpert Express NEGATIVE (NEGATIVE)
[2022-04-08] MEDS ORDERED: MORPHINE SULFATE 2 MG INJ IV PRN (16:49)
[2022-04-08] MEDS ORDERED: Zofran 4 MG/2 ML VIAL IV PRN (16:49)
[2022-04-08] MEDS ORDERED: Sodium Chloride 0.9% 1000 ML 1,000 ML IV SCH (16:49)
[2022-04-08] MEDS: DUONEB 0.5-3 MG/3 ml Neb IH SCH (17:06)
[2022-04-08 17:07] LABS: Appearance CLEAR (CLEAR); Bacteria RARE /HPF (NEGATIVE); Bilirubin NEGATIVE (NEGATIVE); Glucose NEGATIVE (NEGATIVE); Ketones NEGATIVE (NEGATIVE); Mucus SLIGHT /HPF (NEGATIVE); Nitrite NEGATIVE (NEGATIVE); Protein,Urine Dip NEGATIVE (Negative); RBC NEGATIVE Ery/ul (0-5); Urobilinogen 0.2 mg/dL (0-1); WBC 0-2 /HPF (0-5)
[2022-04-08 17:08] LABS: Dipstick done @ ? MAIN LAB; Urine Cultured Indicated? NO
[2022-04-08 17:24] LABS: Barbiturate,Urine NEGATIVE (NEGATIVE); Benzodiazepine,Urine POSITIVE (NEGATIVE); Cocaine,Urine NEGATIVE (NEGATIVE); Methadone,Urine NEGATIVE (NEGATIVE); Opiate,Urine POSITIVE (NEGATIVE); PCP,Urine NEGATIVE (NEGATIVE); THC,Urine POSITIVE (NEGATIVE)
[2022-04-08] MEDS ORDERED: PROTONIX 40 MG IV IV SCH (18:00)
[2022-04-08] MEDS: solu-MEDROL 80 MG, Sterile H2O 10 ml 2 ML IV SCH ×4 (18:05→23:47)
[2022-04-08] MEDS: AZACTAM 1 GM*** 1 GM in Sodium Chloride 100ML MINI-BAG PLUS 100 ML IV SCH ×2 (18:05→23:47)
[2022-04-08 18:15] LABS: Amphetamine,Urine POSITIVE (NEGATIVE)
[2022-04-08] MEDS: DESYREL 50 MG PO SCH (21:27)
[2022-04-08] MEDS: ZOCOR 20MG PO SCH (21:27)
[2022-04-08] MEDS: AMITRIPTYLINE 25 MG TABLET PO SCH (21:27)
[2022-04-08] MEDS: NEURONTIN PO SCH (21:27)
[2022-04-08] MEDS: HUMALOG SQ PRN (21:28)
[2022-04-08] MEDS ORDERED: KLONOPIN PO SCH (22:00)
[2022-04-08] MEDS: Sodium Chloride 0.9% W/ 20 mEq KCl/LITER 1,000 ML IV SCH (23:47)
[2022-04-09] MEDS: DUONEB 0.5-3 MG/3 ml Neb IH SCH ×5 (00:15→22:35)
[2022-04-09 02:58] LABS: Basophil (Absolute #) 0.04 x10^3/uL (0-0.4); Eosinophil (Absolute #) 0 x10^3/uL (0-0.5); Hematocrit 40.1 % (35-47); Hemoglobin 12.5 g/dL (12.0-16.0); Lymphocyte (Absolute #) 0.82 x10^3/uL (1.0-4.6); Lymphocytes % 6.2 % (24.0-44.0); Mean Corpuscular Hemoglobin 28.7 pg (26-32); Mean Corpuscular Hgb Concent. 31.2 g/dL (32-36); Monocyte (Absolute #) 0.38 x10^3/uL (0.0-1.3); Monocytes % 2.9 % (0.0-12.0); Platelet Count 202 x10^3/uL (150-450); Red Blood Count 4.36 x10^6/uL (4.1-5.4); Red Cell Distribution Width 12.8 % (11.5-14.0); White Blood Count 13.3 x10^3/uL (4.0-10.5)
[2022-04-09 03:47] LABS: ALBUMIN 3.3 g/dL (3.5-5.0); ALKALINE PHOSPHATASE 96 U/L (38-126); ANION GAP 9.3 MEQ/L (5-15); BLOOD UREA NITROGEN 11 mg/dL (7-17); CHLORIDE 108 mmol/L (98-107); Calcium 8.7 mg/dL (8.4-10.2); Carbon Dioxide 26 mmol/L (22-30); Creatinine 1 0.63 mg/dL (0.52-1.04); EST GLOMERULAR FILTRATION RATE > 60.0 ML/MIN; Glucose 213 mg/dL (74-106); Potassium 3.9 mmol/L (3.5-5.1); SGOT/AST 26 U/L (14-36); SGPT/ALT 29 U/L (0-35); SODIUM 140 mmol/L (137-145); Total Protein 6.5 g/dL (6.3-8.2)
[2022-04-09] MEDS: solu-MEDROL 80 MG, Sterile H2O 10 ml 2 ML IV SCH ×6 (05:58→17:11)
[2022-04-09] MEDS: AZACTAM 1 GM*** 1 GM in Sodium Chloride 100ML MINI-BAG PLUS 100 ML IV SCH ×3 (05:59→17:11)
[2022-04-09] MEDS ORDERED: VENTOLIN COMMON CANISTER IH PRN (07:27)
[2022-04-09] MEDS: HUMALOG SQ PRN ×2 (08:42→12:56)
[2022-04-09] MEDS ORDERED: NON-FORMULARY ITEM (Omeprazole [Omeprazole] 40 MG Capsule.Dr) PO SCH (10:00)
[2022-04-09] MEDS ORDERED: NON-FORMULARY ITEM (Amlodipine Besylate [Amlodipine Besylate] 2.5 MG Tablet) PO SCH (10:00)
[2022-04-09] MEDS: Abilify 10 MG PO SCH (10:36)
[2022-04-09] MEDS: NORVASC 5 MG PO SCH (10:36)
[2022-04-09] MEDS: NEURONTIN PO SCH ×4 (10:36→21:43)
[2022-04-09] MEDS: ECOTRIN 81 MG PO SCH (10:36)
[2022-04-09] MEDS: MELOXICAM PO SCH (10:36)
[2022-04-09] MEDS: clonazePAM PO SCH ×2 (10:36→21:42)
[2022-04-09] MEDS: Toprol-Xl 25MG Tablets PO SCH (10:36)
[2022-04-09] MEDS: SYNTHROID 25 MCG PO SCH (10:36)
[2022-04-09] MEDS: Levofloxacin 500MG/100ML D5W 500 MG/100 ML BAG IV SCH (10:37)
[2022-04-09] MEDS: Protonix 40MG Tablet PO SCH (10:37)
[2022-04-09] MEDS: Sodium Chloride 0.9% W/ 20 mEq KCl/LITER 1,000 ML IV SCH ×2 (11:24→21:50)
[2022-04-09] MEDS: NORCO 5/325 MG PO PRN ×2 (12:28→19:10)
[2022-04-09] MEDS: Nicoderm CQ 21 MG TOP SCH (12:55)
[2022-04-09] MEDS: Glucophage XR 500 MG PO SCH (17:11)
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
[2022-04-09] MEDS: DESYREL 50 MG PO SCH (21:42)
[2022-04-09] MEDS: AMITRIPTYLINE 25 MG TABLET PO SCH (21:42)
[2022-04-09] MEDS: ZOCOR 20MG PO SCH (21:43)
[2022-04-10] MEDS: NORCO 5/325 MG PO PRN ×3 (00:21→18:44)
[2022-04-10] MEDS: AZACTAM 1 GM*** 1 GM in Sodium Chloride 100ML MINI-BAG PLUS 100 ML IV SCH ×2 (00:22→06:10)
[2022-04-10] MEDS: solu-MEDROL 80 MG, Sterile H2O 10 ml 2 ML IV SCH ×4 (00:22→06:10)
[2022-04-10] MEDS: DUONEB 0.5-3 MG/3 ml Neb IH SCH ×6 (03:34→23:00)
[2022-04-10 06:04] LABS: Hematocrit 37.1 % (35-47); Hemoglobin 11.3 g/dL (12.0-16.0); Mean Cell Volume 93.9 fL (78-100); Mean Corpuscular Hemoglobin 28.6 pg (26-32); Mean Corpuscular Hgb Concent. 30.5 g/dL (32-36); Mean Platelet Volume 10.8 fL (7.5-11.0); Platelet Count 223 x10^3/uL (150-450); Red Blood Count 3.95 x10^6/uL (4.1-5.4); Red Cell Distribution Width 13.2 % (11.5-14.0); White Blood Count 16.4 x10^3/uL (4.0-10.5)
[2022-04-10 06:36] LABS: ALBUMIN 3.1 g/dL (3.5-5.0); ALKALINE PHOSPHATASE 117 U/L (38-126); ANION GAP 10.5 MEQ/L (5-15); BLOOD UREA NITROGEN 11 mg/dL (7-17); CHLORIDE 108 mmol/L (98-107); Calcium 9.2 mg/dL (8.4-10.2); Carbon Dioxide 27 mmol/L (22-30); Creatinine 1 0.56 mg/dL (0.52-1.04); EST GLOMERULAR FILTRATION RATE > 60.0 ML/MIN; Glucose 204 mg/dL (74-106); Potassium 4.9 mmol/L (3.5-5.1); SGOT/AST 42 U/L (14-36); SGPT/ALT 53 U/L (0-35); SODIUM 140 mmol/L (137-145); Total Protein 6.4 g/dL (6.3-8.2)
[2022-04-10] MEDS: Sodium Chloride 0.9% W/ 20 mEq KCl/LITER 1,000 ML IV SCH (08:56)
[2022-04-10] MEDS: Toprol-Xl 25MG Tablets PO SCH (10:04)
[2022-04-10] MEDS: Nicoderm CQ 21 MG TOP SCH (10:04)
[2022-04-10] MEDS: Abilify 10 MG PO SCH (10:04)
[2022-04-10] MEDS: ECOTRIN 81 MG PO SCH (10:06)
[2022-04-10] MEDS: NORVASC 5 MG PO SCH (10:06)
[2022-04-10] MEDS: SYNTHROID 25 MCG PO SCH (10:06)
[2022-04-10] MEDS: clonazePAM PO SCH ×2 (10:06→21:29)
[2022-04-10] MEDS: NEURONTIN PO SCH ×4 (10:07→21:29)
[2022-04-10] MEDS: Protonix 40MG Tablet PO SCH (10:07)
[2022-04-10] MEDS: MELOXICAM PO SCH (10:07)
[2022-04-10] MEDS: Levofloxacin 500MG/100ML D5W 500 MG/100 ML BAG IV SCH (10:12)
[2022-04-10] MEDS: HUMALOG SQ PRN (11:40)
[2022-04-10] MEDS: solu-MEDROL 40 MG, Sterile H2O 10 ml 1 ML IV SCH ×4 (14:22→21:28)
[2022-04-10] MEDS: Glucophage XR 500 MG PO SCH (17:09)
[2022-04-10] MEDS ORDERED: solu-MEDROL ONE (21:26)
[2022-04-10] MEDS: ZOCOR 20MG PO SCH (21:28)
[2022-04-10] MEDS: AMITRIPTYLINE 25 MG TABLET PO SCH (21:29)
[2022-04-10] MEDS: DESYREL 50 MG PO SCH (21:29)
[2022-04-11] MEDS: DUONEB 0.5-3 MG/3 ml Neb IH SCH ×6 (02:45→22:21)
[2022-04-11 06:09] LABS: Hematocrit 37.7 % (35-47); Hemoglobin 11.7 g/dL (12.0-16.0); Mean Cell Volume 92.4 fL (78-100); Mean Corpuscular Hemoglobin 28.7 pg (26-32); Mean Platelet Volume 10.5 fL (7.5-11.0); Platelet Count 254 x10^3/uL (150-450); Red Blood Count 4.08 x10^6/uL (4.1-5.4); Red Cell Distribution Width 13.3 % (11.5-14.0); White Blood Count 17.5 x10^3/uL (4.0-10.5)
[2022-04-11 06:46] LABS: ALBUMIN 3.2 g/dL (3.5-5.0); ALKALINE PHOSPHATASE 120 U/L (38-126); BLOOD UREA NITROGEN 13 mg/dL (7-17); CHLORIDE 104 mmol/L (98-107); Calcium 9.6 mg/dL (8.4-10.2); Carbon Dioxide 31 mmol/L (22-30); Creatinine 1 0.61 mg/dL (0.52-1.04); EST GLOMERULAR FILTRATION RATE > 60.0 ML/MIN; Glucose 165 mg/dL (74-106); Potassium 4.2 mmol/L (3.5-5.1); SGOT/AST 30 U/L (14-36); SGPT/ALT 55 U/L (0-35); SODIUM 141 mmol/L (137-145); Total Protein 6.6 g/dL (6.3-8.2)
[2022-04-11] MEDS ORDERED: solu-MEDROL ONE ×2 (07:20→22:04)
[2022-04-11] MEDS: solu-MEDROL 40 MG, Sterile H2O 10 ml 1 ML IV SCH ×6 (07:27→22:12)
[2022-04-11] MEDS: ECOTRIN 81 MG PO SCH (09:35)
[2022-04-11] MEDS: clonazePAM PO SCH ×2 (09:35→22:12)
[2022-04-11] MEDS: Abilify 10 MG PO SCH (09:35)
[2022-04-11] MEDS: Nicoderm CQ 21 MG TOP SCH (09:36)
[2022-04-11] MEDS: NEURONTIN PO SCH ×4 (09:36→22:12)
[2022-04-11] MEDS: MELOXICAM PO SCH (09:36)
[2022-04-11] MEDS: NORVASC 5 MG PO SCH (09:37)
[2022-04-11] MEDS: SYNTHROID 25 MCG PO SCH (09:38)
[2022-04-11] MEDS: Toprol-Xl 25MG Tablets PO SCH (09:38)
[2022-04-11] MEDS: NORCO 5/325 MG PO PRN ×2 (09:38→22:15)
[2022-04-11] MEDS: Protonix 40MG Tablet PO SCH (09:38)
[2022-04-11] MEDS ORDERED: BENADRYL 25 MG CAPSULE PO PRN (10:35)
[2022-04-11] MEDS: Levofloxacin 500MG/100ML D5W 500 MG/100 ML BAG IV SCH (11:03)
[2022-04-11] MEDS: Merrem 1 GM in Sodium Chloride 100ML MINI-BAG PLUS 100 ML IV SCH ×2 (13:52→22:12)
[2022-04-11] MEDS: Glucophage XR 500 MG PO SCH (17:20)
[2022-04-11] MEDS: AMITRIPTYLINE 25 MG TABLET PO SCH (22:12)
[2022-04-11] MEDS: DESYREL 50 MG PO SCH (22:12)
[2022-04-11] MEDS: ZOCOR 20MG PO SCH (22:12)
[2022-04-11] MEDS: HUMALOG SQ PRN (22:28)
[2022-04-12] MEDS: DUONEB 0.5-3 MG/3 ml Neb IH SCH ×6 (02:44→23:03)
[2022-04-12 04:59] LABS: Hematocrit 38.2 % (35-47); Hemoglobin 12.3 g/dL (12.0-16.0); Mean Cell Volume 89.3 fL (78-100); Mean Corpuscular Hemoglobin 28.7 pg (26-32); Mean Corpuscular Hgb Concent. 32.2 g/dL (32-36); Mean Platelet Volume 10.4 fL (7.5-11.0); Platelet Count 273 x10^3/uL (150-450); Red Blood Count 4.28 x10^6/uL (4.1-5.4); Red Cell Distribution Width 13.7 % (11.5-14.0); White Blood Count 14.7 x10^3/uL (4.0-10.5)
[2022-04-12] MEDS ORDERED: solu-MEDROL ONE (06:00)
[2022-04-12 06:02] LABS: ALBUMIN 3.2 g/dL (3.5-5.0); ALKALINE PHOSPHATASE 119 U/L (38-126); ANION GAP 12.3 MEQ/L (5-15); BLOOD UREA NITROGEN 15 mg/dL (7-17); CHLORIDE 100 mmol/L (98-107); Calcium 9.3 mg/dL (8.4-10.2); Carbon Dioxide 30 mmol/L (22-30); Creatinine 1 0.65 mg/dL (0.52-1.04); EST GLOMERULAR FILTRATION RATE > 60.0 ML/MIN; Glucose 207 mg/dL (74-106); Potassium 3.7 mmol/L (3.5-5.1); SGOT/AST 22 U/L (14-36); SGPT/ALT 42 U/L (0-35); SODIUM 139 mmol/L (137-145); Total Protein 6.5 g/dL (6.3-8.2)
[2022-04-12] MEDS: Merrem 1 GM in Sodium Chloride 100ML MINI-BAG PLUS 100 ML IV SCH ×3 (06:13→20:47)
[2022-04-12] MEDS: solu-MEDROL 40 MG, Sterile H2O 10 ml 1 ML IV SCH ×4 (06:13→17:46)
[2022-04-12 06:31] LABS: Lymphocytes 17 % (24-44); Monocyte 2 % (0.0-12.0); Total Cells Counted 100
[2022-04-12 06:32] LABS: Platelet Estimate NORMAL (NORMAL)
[2022-04-12] MEDS: NORCO 5/325 MG PO PRN ×3 (07:56→20:18)
[2022-04-12] MEDS: Toprol-Xl 25MG Tablets PO SCH (08:39)
[2022-04-12] MEDS: clonazePAM PO SCH ×2 (08:39→20:46)
[2022-04-12] MEDS: NORVASC 5 MG PO SCH (08:39)
[2022-04-12] MEDS: Protonix 40MG Tablet PO SCH (08:39)
[2022-04-12] MEDS: SYNTHROID 25 MCG PO SCH (08:39)
[2022-04-12] MEDS: Abilify 10 MG PO SCH (08:40)
[2022-04-12] MEDS: ECOTRIN 81 MG PO SCH (08:40)
[2022-04-12] MEDS: Nicoderm CQ 21 MG TOP SCH (08:40)
[2022-04-12] MEDS: MELOXICAM PO SCH (08:40)
[2022-04-12] MEDS: NEURONTIN PO SCH ×4 (08:40→20:47)
--- NOTE | 2022-04-12 10:50 | XRAY ---
Indication: Acute mental status change. Short of breath. Fever. Comparison: None Portal chest demonstrates diffuse right mid to lower lung interstitial alveolar opacities with tiny right effusion. Remaining heart and left lung unremarkable. Bony thorax intact with incidental proximal right humerus enchondroma.
--- NOTE | 2022-04-12 11:13 | CONS ---
CONSULT DATE: 04/11/2022 HISTORY: Joaquina Chicas is a 51-year-old woman with significant smoking history who has been hospitalized with complaints of shortness of breath. The patient was noted to have hypoxemia requiring intermittent oxygen. She is also being treated for chronic obstructive pulmonary disease exacerbation. The patient does report improvement in the shortness of breath. She continues to smoke two packs of cigarettes per day and states that she is "Not willing to quit". She is currently receiving nicotine patch to avoid withdrawal. PAST MEDICAL HISTORY: Positive for history of chronic obstructive pulmonary disease, hypertension, dyslipidemia, diabetes mellitus, gastroesophageal reflux, chronic insomnia, hypothyroidism and anxiety disorder. She also has history of congestive heart failure and is followed by a slitter scorer at [facility]. She does not have any cardiac stents. PAST SURGICAL HISTORY: Positive for section, cholecystectomy, knee and shoulder surgery along with carpal tunnel surgery. MEDICATIONS: Home and current medications are reviewed. ALLERGIES: PENICILLINS. PHYSICAL EXAMINATION: This is a middle-aged woman who appears comfortable, able to carry out conversation without difficulty. Vital signs noted. HEENT: Normocephalic. Oral exam unremarkable. Mild perioral dyskinesis noted. NECK: Supple. CVS: First and second heart sounds are normal, regular, rhythmic. RESPIRATORY: Shows diminished breath sounds, bilateral scattered rhonchi heard. ABDOMEN: Soft. EXTREMITIES: No edema is noted. LABORATORY DATA AND TESTS: Labs and x-rays reviewed. ASSESSMENT: This is a 51-year-old woman admitted with: 1) Right lung community acquired pneumonia with small pleural effusion. 2) Chronic obstructive pulmonary disease with exacerbation. 3) Hypoxemia. 4) Nicotine addiction. 5) Comorbidities listed above. RECOMMENDATIONS: 1) The patient appears to be improving from pulmonary standpoint. A follow up chest x-ray is recommended to assess resolution of infiltrates and effusions. 2) Gradual steroid taper, continue bronchodilators. Will require home oxygen assessment prior to discharge. The patient is unwilling to give up smoking. PFT as outpatient. Advised to follow up with me in two weeks upon discharge. Thank you for allowing me to participate in the care of this patient.
[2022-04-12] MEDS ORDERED: Toprol-Xl 25MG Tablets PO ONE (16:35)
[2022-04-12] MEDS: Glucophage XR 500 MG PO SCH (17:45)
[2022-04-12] MEDS: TYLENOL 325 MG PO PRN (17:52)
--- NOTE | 2022-04-12 18:35 | XRAY ---
Indication: Elevated troponin. Two-dimensional sonogram and color Doppler imaging of the carotid arteries of the neck performed. Comparison: None Examination of the right carotid circulation demonstrates minimal eccentric calcified plaquing at the level of the bulb and proximal internal carotid artery. Remaining common carotid and external carotid arteries are widely patent. PSV of the CCA is 92 cm/s. PSV of the ICA is 61 cm/s. ICA/CCA ratio is 0.7. Normal antegrade vertebral artery flow. Examination of the left carotid circulation demonstrates minimal heterogeneous eccentric plaquing at the level of the common carotid artery and bulb. Remaining internal carotid and external carotid arteries are widely patent. PSV of the CCA is 69 cm/s. PSV of the ICA is 58 cm/s. ICA/CCA ratio is 0.8. Normal antegrade vertebral artery flow. Impression: Minimal arteriosclerotic plaquing bilaterally as detailed. Velocity measurements and ratios are negative for hemodynamically significant flow limiting stenosis.
[2022-04-12] MEDS: AMITRIPTYLINE 25 MG TABLET PO SCH (20:46)
[2022-04-12] MEDS: DESYREL 50 MG PO SCH (20:47)
[2022-04-12] MEDS: ZOCOR 20MG PO SCH (20:47)
--- NOTE | 2022-04-12 23:49 | PCM.NOTE ---
Date and Time: 04/12/22 7805 Subjective Assessment: Patient did not improve over the weekend WBC climbed up to 17,500 and Antibiotic changed to Meropenem with improvement clinically and WBC has come down to 14,700.Clinically patient has improved and asking to go home. B/P up and meds adjusted. Plan home after Meropenem in the morning. Objective Exam General Appearance: no apparent distress Neurologic Exam: alert, oriented x 3, cooperative Respiratory Exam: rhonchi, wheezing (but improved aeration) Cardiovascular Exam: regular rate/rhythm OBJECTIVE DATA Vital Signs: Vital Signs - 24 hr Temp Pulse Resp BP Pulse Ox 04/12/22 23:03 77 18 91 L 04/12/22 18:56 97.9 F 69 17 160/78 97 04/12/22 18:48 86 18 92 L 04/12/22 16:00 97.5 F 78 16 171/88 92 L 04/12/22 15:05 78 16 92 L 04/12/22 12:00 97.5 F 78 18 171/88 97 04/12/22 10:51 77 20 85 L 04/12/22 07:58 97.3 F 76 16 196/99 93 L 04/12/22 07:03 78 16 91 L 04/12/22 04:00 97.0 F 89 17 143/68 93 L 04/12/22 02:44 81 20 94 L Pain Assessment - Last Documented Pain Intensity 8 Pain Scale Used 0-10 Pain Scale Intake and Output: Intake & Output 04/10/22 04/11/22 04/12/22 04/13/22 11:59 11:59 11:59 11:59 Intake Total 1340 3720 720 480 Output Total 500 6900 1800 900 Balance 840 -3180 -1080 -420 Weight 81.4 kg 81.5 kg 81.1 kg Lab Results: Lab Results-Last 24 Hours 04/12/22 04/12/22 04/12/22 Range/Units 05:02 05:02 07:11 WBC 14.7 H (4.0-10.5) x10^3/uL RBC 4.28 (4.1-5.4) x10^6/uL Hgb 12.3 (12.0-16.0) g/dL Hct 38.2 (35-47) % MCV 89.3 (78-100) fL MCH 28.7 (26-32) pg MCHC 32.2 (32-36) g/dL RDW 13.7 (11.5-14.0) % Plt Count 273 (150-450) x10^3/uL MPV 10.4 (7.5-11.0) fL Segmented Neutrophils 81 H (36.0-66.0) % Lymphocytes (Manual) 17 L (24-44) % Monocytes (Manual) 2 (0.0-12.0) % Platelet Estimate NORMAL (NORMAL) RBC Morphology NORMAL Sodium 139 (137-145) mmol/L Potassium 3.7 (3.5-5.1) mmol/L Chloride 100 (98-107) mmol/L Carbon Dioxide 30 (22-30) mmol/L Anion Gap 12.3 (5-15) MEQ/L BUN 15 (7-17) mg/dL Creatinine 0.65 (0.52-1.04) mg/dL Estimated GFR > 60.0 ML/MIN Glucose 207 H (74-106) mg/dL POC Glucometer 177 H (74 to 106) mg/dL Calcium 9.3 (8.4-10.2) mg/dL Total Bilirubin 0.30 (0.2-1.3) mg/dL AST 22 (14-36) U/L ALT 42 H (0-35) U/L Alkaline Phosphatase 119 (38-126) U/L Serum Total Protein 6.5 (6.3-8.2) g/dL Albumin 3.2 L (3.5-5.0) g/dL Procalcitonin 4.480 H* (0.030-0.080) ng/mL 04/12/22 04/12/22 04/12/22 Range/Units 11:38 15:41 21:23 WBC (4.0-10.5) x10^3/uL RBC (4.1-5.4) x10^6/uL Hgb (12.0-16.0) g/dL Hct (35-47) % MCV (78-100) fL MCH (26-32) pg MCHC (32-36) g/dL RDW (11.5-14.0) % Plt Count (150-450) x10^3/uL MPV (7.5-11.0) fL Segmented Neutrophils (36.0-66.0) % Lymphocytes (Manual) (24-44) % Monocytes (Manual) (0.0-12.0) % Platelet Estimate (NORMAL) RBC Morphology Sodium (137-145) mmol/L Potassium (3.5-5.1) mmol/L Chloride (98-107) mmol/L Carbon Dioxide (22-30) mmol/L Anion Gap (5-15) MEQ/L BUN (7-17) mg/dL Creatinine (0.52-1.04) mg/dL Estimated GFR ML/MIN Glucose (74-106) mg/dL POC Glucometer 217 H 195 H 277 H (74 to 106) mg/dL Calcium (8.4-10.2) mg/dL Total Bilirubin (0.2-1.3) mg/dL AST (14-36) U/L ALT (0-35) U/L Alkaline Phosphatase (38-126) U/L Serum Total Protein (6.3-8.2) g/dL Albumin (3.5-5.0) g/dL Procalcitonin (0.030-0.080) ng/mL Radiology Exams: Radiology Procedures Category Date Time Status CAROTID BILATERAL [US] Routine Exams 04/12/22 17:42 Completed ECHO W/2D AND DOPPLER [US] Routine Exams 04/12/22 17:42 Taken Multi-Disciplinary Progress Notes: Multi-Disciplinary Progress Notes 04/12/22 11:02 Respiratory Note by Aimee Bales pt had been in hallway walking and pts spo2 found to be 85% on rm air at rest. pt placed on 2L of o2 and spo2 up to 94%. Initialized on 04/12/22 11:02 - END OF NOTE 04/12/22 10:40 Case Management Note by Vane Loomis S/W PATIENT ABOUT NEEDS AT TIME OF DC. 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 HHC HAS BEEN SET UP. PATIENT REPORTS SHE HAS A NEB MACHINE AT HOME. SHE DENIES ANY OTHER NEEDS AT TIME OF DC Initialized on 04/12/22 10:40 - END OF NOTE Assessment/Plan (1) Respiratory failure Current Visit: Yes Status: Acute Qualifiers: Chronicity: acute Respiratory failure complication: hypoxia Qualified Code(s): J96.01 - Acute respiratory failure with hypoxia Assessment & Plan: will need home O2 Code(s): J96.90 - RESPIRATORY FAILURE, UNSP, UNSP W HYPOXIA OR HYPERCAPNIA (2) Pneumonia Current Visit: Yes Status: Acute Code(s): J18.9 - PNEUMONIA, UNSPECIFIED ORGANISM (3) Altered mental status Current Visit: Yes Status: Resolved Code(s): R41.82 - ALTERED MENTAL STATUS, UNSPECIFIED (4) Elevated troponin Current Visit: Yes Status: Resolved Assessment & Plan: ECHO and see Cardiology outpatient Code(s): R77.8 - OTHER SPECIFIED ABNORMALITIES OF PLASMA PROTEINS (5) Elevated troponin level not due myocardial infarction Current Visit: Yes Status: Resolved Code(s): R77.8 - OTHER SPECIFIED A BNORMALITIES OF PLASMA PROTEINS (6) DM2 (diabetes mellitus, type 2) Current Visit: Yes Status: Chronic Qualifiers: Diabetes mellitus terminal supervisor insulin use: without terminal supervisor use (7) HTN (hypertension) Current Visit: Yes Status: Chronic Assessment & Plan: amlodipine and Metoprolol doses increased. Code(s): I10 - ESSENTIAL (PRIMARY) HYPERTENSION (8) PTSD (post-traumatic stress disorder) Current Visit: Yes Status: Chronic Code(s): F43.10 - POST-TRAUMATIC STRESS DISORDER, UNSPECIFIED
[2022-04-13] MEDS: DUONEB 0.5-3 MG/3 ml Neb IH SCH ×2 (02:58→07:13)
[2022-04-13] MEDS: TYLENOL 325 MG PO PRN (03:23)
[2022-04-13 05:14] LABS: Hematocrit 39.4 % (35-47); Hemoglobin 12.7 g/dL (12.0-16.0); Mean Cell Volume 90.4 fL (78-100); Mean Corpuscular Hemoglobin 29.1 pg (26-32); Mean Corpuscular Hgb Concent. 32.2 g/dL (32-36); Mean Platelet Volume 10.2 fL (7.5-11.0); Platelet Count 296 x10^3/uL (150-450); Red Blood Count 4.36 x10^6/uL (4.1-5.4); Red Cell Distribution Width 13.4 % (11.5-14.0); White Blood Count 15.2 x10^3/uL (4.0-10.5)
[2022-04-13 05:53] LABS: ANION GAP 10.2 MEQ/L (5-15); BLOOD UREA NITROGEN 16 mg/dL (7-17); CHLORIDE 96 mmol/L (98-107); Calcium 8.8 mg/dL (8.4-10.2); Carbon Dioxide 33 mmol/L (22-30); Creatinine 1 0.66 mg/dL (0.52-1.04); EST GLOMERULAR FILTRATION RATE > 60.0 ML/MIN; Glucose 195 mg/dL (74-106); Potassium 3.9 mmol/L (3.5-5.1); SODIUM 135 mmol/L (137-145)
[2022-04-13 06:06] LABS: Lymphocytes 32 % (24-44); Monocyte 8 % (0.0-12.0); Total Cells Counted 100
[2022-04-13 06:07] LABS: Platelet Estimate NORMAL (NORMAL)
[2022-04-13] MEDS: NORCO 5/325 MG PO PRN (06:09)
[2022-04-13] MEDS: Merrem 1 GM in Sodium Chloride 100ML MINI-BAG PLUS 100 ML IV SCH (06:10)
[2022-04-13] MEDS: solu-MEDROL 40 MG, Sterile H2O 10 ml 1 ML IV SCH ×2 (06:43)
[2022-04-13 07:53] VITALS: BP 172/82; PULSE 75; O2SAT 91
[2022-04-13] MEDS ORDERED: Lasix 20 MG/2 ML IV SCH (09:00)
--- NOTE | 2022-04-13 09:09 | PCM.DCORD ---
- Discharge Disposition: Home, Self-Care Condition: Good Prescriptions: New Prednisone 10 mg [Deltasone 10 mg] 10 mg PO DAILY #20 tablet Continue Gabapentin [Neurontin] 600 mg PO QID Atorvastatin Calcium [Lipitor] 80 mg PO HS Meloxicam 7.5 mg PO DAILY Tizanidine HCl 2 mg PO BID Albuterol Sulfate [Albuterol Sulfate Hfa] 2 inh PO Q4HPRN PRN PRN Reason: Shortness Of Breath/Wheezing Aripiprazole 10 mg [Abilify 10 MG] 10 mg PO DAILY Amlodipine Besylate 2.5 mg PO DAILY Amitriptyline HCl 25 mg [Amitriptyline 25 mg Tablet] 25 mg PO HS Metoprolol Succinate 25 mg Xl* [Toprol-Xl 25MG Tablets] 25 mg PO DAILY Metformin HCl Xr 500 mg [Glucophage XR 500 MG] 500 mg PO EVENING MEAL Sucralfate 1 gm [Carafate 1 GM] 1 g PO QID Omeprazole 40 mg PO DAILY Trazodone HCl 50 mg [Desyrel 50 mg] 50 mg PO HS Aspirin [Nish Chewable Aspirin] 81 mg PO DAILY clonazePAM [Clonazepam] 0.5 mg PO BID Levothyroxine Sodium 25 Mcg [Synthroid 25 Mcg] 25 mcg PO DAILY Additional Instructions: [facility] WILL CONTACT YOU TO SET UP A TIME TO COME SEE YOU. THEIR PHONE NUMBER IS [phone] Follow up with: CLAIR SOLER [ACTIVE STAFF] - 2 weeks KILLIAN CONNORS DO [Primary Care Provider] - 04/16/22 2:45 pm
[2022-04-13] MEDS: clonazePAM PO SCH (09:12)
[2022-04-13] MEDS: SYNTHROID 25 MCG PO SCH (09:12)
[2022-04-13] MEDS: NEURONTIN PO SCH (09:12)
[2022-04-13] MEDS: MELOXICAM PO SCH (09:12)
[2022-04-13] MEDS: ECOTRIN 81 MG PO SCH (09:13)
[2022-04-13] MEDS: Abilify 10 MG PO SCH (09:13)
[2022-04-13] MEDS: Protonix 40MG Tablet PO SCH (09:13)
[2022-04-13] MEDS: Nicoderm CQ 21 MG TOP SCH (09:14)
[2022-04-13] MEDS ORDERED: Klor Con PO SCH (09:30)
--- NOTE | 2022-04-13 09:39 | PCM.DS ---
Discharge Summary Date of Admission: 04/08/22 16:48 Date of Discharge: 04/13/22 Admitting Physician: KILLIAN CONNORS DO Consults: Consults on Case 04/09/22 07:01 Consult Pulmonology ROUTINE Primary Care Provider: KILLIAN CONNORS DO Allergies Allergies Penicillins Allergy (Verified 04/08/22 12:58) Hospital Summary - Hospital Course Hospital Course: Patient was admitted to [facility] from ER with AMS ,Hypoxia and pneumonia. Prolactin levels and troponin were elevated. Troponin was slightly elevated and returned to normal ,no chest pain or EKG changes . AMS resolved after O2 sats improved and IV hydration. Patient is allergic to PCN and was initiially treated with Levaquin but no improvement so Meropenem was started and was affective. General Assembler Dr Soler consulted and will be following outpatient .Patient is a long time smoker and is not ready to stop smoking. She will need Home O2 and this has been arranged. I will see her this week in clinic . See discharge orders. - Vitals & Intake/Output Vital Signs: Vital Signs Temperature 96.3 F 04/13/22 07:52 Pulse Rate 75 04/13/22 07:52 Respiratory Rate 17 04/13/22 07:52 Blood Pressure 172/82 04/13/22 07:52 O2 Sat by Pulse Oximetry 91 L 04/13/22 07:52 Intake & Output: Intake & Output 04/10/22 04/11/22 04/12/22 04/13/22 11:59 11:59 11:59 11:59 Intake Total 1340 3720 720 1200 Output Total 500 6900 1800 3800 Balance 216 -7555 -8510 -7391 Weight 81.4 kg 81.5 kg 81.1 kg 77.5 kg - Lab Result Diagrams: 04/13/22 04:45 04/13/22 04:45 Lab Results-Last 24 Hrs: Lab Results-Last 24 Hours 04/12/22 04/12/22 04/12/22 Range/Units 11:38 15:41 21:23 WBC (4.0-10.5) x10^3/uL RBC (4.1-5.4) x10^6/uL Hgb (12.0-16.0) g/dL Hct (35-47) % MCV (78-100) fL MCH (26-32) pg MCHC (32-36) g/dL RDW (11.5-14.0) % Plt Count (150-450) x10^3/uL MPV (7.5-11.0) fL Segmented Neutrophils (36.0-66.0) % Lymphocytes (Manual) (24-44) % Monocytes (Manual) (0.0-12.0) % Platelet Estimate (NORMAL) RBC Morphology Sodium (137-145) mmol/L Potassium (3.5-5.1) mmol/L Chloride (98-107) mmol/L Carbon Dioxide (22-30) mmol/L Anion Gap (5-15) MEQ/L BUN (7-17) mg/dL Creatinine (0.52-1.04) mg/dL Estimated GFR ML/MIN Glucose (74-106) mg/dL POC Glucometer 217 H 195 H 277 H (74 to 106) mg/dL Calcium (8.4-10.2) mg/dL 04/13/22 04/13/22 04/13/22 Range/Units 04:45 04:45 07:25 WBC 15.2 H (4.0-10.5) x10^3/uL RBC 4.36 (4.1-5.4) x10^6/uL Hgb 12.7 (12.0-16.0) g/dL Hct 39.4 (35-47) % MCV 90.4 (78-100) fL MCH 29.1 (26-32) pg MCHC 32.2 (32-36) g/dL RDW 13.4 (11.5-14.0) % Plt Count 296 (150-450) x10^3/uL MPV 10.2 (7.5-11.0) fL Segmented Neutrophils 60 (36.0-66.0) % Lymphocytes (Manual) 32 (24-44) % Monocytes (Manual) 8 (0.0-12.0) % Platelet Estimate NORMAL (NORMAL) RBC Morphology NORMAL Sodium 135 L (137-145) mmol/L Potassium 3.9 (3.5-5.1) mmol/L Chloride 96 L (98-107) mmol/L Carbon Dioxide 33 H (22-30) mmol/L Anion Gap 10.2 (5-15) MEQ/L BUN 16 (7-17) mg/dL Creatinine 0.66 (0.52-1.04) mg/dL Estimated GFR > 60.0 ML/MIN Glucose 195 H (74-106) mg/dL POC Glucometer 144 H (74 to 106) mg/dL Calcium 8.8 (8.4-10.2) mg/dL Micro Results-Entire Visit: Accuchecks Date 04/12/22 Date 04/12/22 Date 04/12/22 Time 21:27 - Radiology Exams Ordered Rad Exams-Entire Visit: Radiology Procedures Category Date Time Status CAROTID BILATERAL [US] Routine Exams 04/12/22 17:42 Completed ECHO W/2D AND DOPPLER [US] Routine Exams 04/12/22 17:42 Taken - Procedures and Test Procedures and Tests throughout Hospitalization: Therapy Orders & Screens 04/08/22 13:14 Respiratory Therapy Assessment DAILY Comment: 04/08/22 16:49 Oxygen Nasal Cannula 6 lpm Comment: 04/08/22 18:02 RT Screen per Nursing Assess ONCE Comment: Protocol Order Physician Instructions: Greater than 3 points order RT Admission Screen Reason For Exam: Triggered on Admission Diagnosis: Acute hypoxic respiratory failure, pneumonia, sepsis Diagnosis: Acute hypoxic respiratory failure, pneumonia, sepsis Pneumonia: Yes Home O2: No Asthma: Yes CHF: Yes Home CPAP/BIPAP: No Home Nebs/MDI: Yes Total Points: 15 Smoking Cessation Education ONCE Comment: Diagnosis: Acute hypoxic respiratory failure, pneumonia, sepsis Smoking Status: Current every day smoker How long have you smoked: age 10 Have you smoked in the past 12 months: Yes Approximately how many cigarettes per day: 40 Do you dip or chew tobacco: No Discharge Exam General Appearance: other (see exam last PM- per nursing patient is upp and has showered without difficulty.) Respiratory Exam: other (per nursing few basilar crsles) Final Diagnosis/Problem List - Final Discharge Diagnosis/Problem (1) Respiratory failure Current Visit: Yes Status: Resolved Assessment & Plan: Home O2 arrranged Code(s): J96.90 - RESPIRATORY FAILURE, UNSP, UNSP W HYPOXIA OR HYPERCAPNIA (2) Pneumonia Current Visit: Yes Status: Acute Assessment & Plan: improved Code(s): J18.9 - PNEUMONIA, UNSPECIFIED ORGANISM (3) Altered mental status Current Visit: Yes Status: Resolved Code(s): R41.82 - ALTERED MENTAL STATUS, UNSPECIFIED (4) Elevated troponin Current Visit: Yes Status: Resolved Assessment & Plan: ECHO today and will see Cardiology as outpatient Code(s): R77.8 - OTHER SPECIFIED ABNORMALITIES OF PLASMA PROTEINS (5) Elevated troponin level not due myocardial infarction Current Visit: Yes Status: Resolved Code(s): R77.8 - OTHER SPECIFIED ABNORMALITIES OF PLASMA PROTEINS (6) DM2 (diabetes mellitus, type 2) Current Visit: Yes Status: Chronic (7) HTN (hypertension) Current Visit: Yes Status: Chronic Assessment & Plan: has been elevated ,IV lasix 20mg - 1 x dose given today, Will monitor as outpatient,Amlodipine was increased. Code(s): I10 - ESSENTIAL (PRIMARY) HYPERTENSION (8) PTSD (post-traumatic stress disorder) Current Visit: Yes Status: Chronic Code(s): F43.10 - POST-TRAUMATIC STRESS DISORDER, UNSPECIFIED (9) COPD (chronic obstructive pulmonary disease) Current Visit: Yes Status: Chronic Assessment & Plan: smoke cessation discussed, will follow with Dr Soler - Discharge Disposition: Home, Self-Care Condition: Good Prescriptions: New Prednisone 10 mg [Deltasone 10 mg] 10 mg PO DAILY #20 tablet Continue Gabapentin [Neurontin] 600 mg PO QID Atorvastatin Calcium [Lipitor] 80 mg PO HS Meloxicam 7.5 mg PO DAILY Tizanidine HCl 2 mg PO BID Albuterol Sulfate [Albuterol Sulfate Hfa] 2 inh PO Q4HPRN PRN PRN Reason: Shortness Of Breath/Wheezing Aripiprazole 10 mg [Abilify 10 MG] 10 mg PO DAILY Amlodipine Besylate 2.5 mg PO DAILY Amitriptyline HCl 25 mg [Amitriptyline 25 mg Tablet] 25 mg PO HS Metoprolol Succinate 25 mg Xl* [Toprol-Xl 25MG Tablets] 25 mg PO DAILY Metformin HCl Xr 500 mg [Glucophage XR 500 MG] 500 mg PO EVENING MEAL Sucralfate 1 gm [Carafate 1 GM] 1 g PO QID Omeprazole 40 mg PO DAILY Trazodone HCl 50 mg [Desyrel 50 mg] 50 mg PO HS Aspirin [Nish Chewable Aspirin] 81 mg PO DAILY clonazePAM [Clonazepam] 0.5 mg PO BID Levothyroxine Sodium 25 Mcg [Synthroid 25 Mcg] 25 mcg PO DAILY Additional Instructions: A REFERRAL WAS SENT TO [facility]. THEY WILL CONTACT YOU TO SET UP A TIME TO COME SEE YOU. THEIR PHONE NUMBER IS [phone] Follow up with: CLAIR SOLER [ACTIVE STAFF] - 05/05/22 2:30 pm ([place] Office) KILLIAN CONNORS DO [Primary Care Provider] - 04/16/22 2:45 pm
[2022-04-13] MEDS ORDERED: NORVASC 5 MG PO SCH (10:00)
[2022-04-13] MEDS ORDERED: Toprol-Xl 25MG Tablets PO SCH (10:00)
== END 2022-04-13 10:08 | disposition home or self-care (01) | DRG 189 ==
LOC: ED 12:34 → MED SURG 16:48
PROVIDERS: ADMIT Family Medicine; ATTEND Family Medicine
DX: J96.01 Acute respiratory failure with hypoxia (principal); J18.9 Pneumonia, unspecified organism; R41.82 Altered mental status, unspecified; R77.8 Other specified abnormalities of plasma proteins; E11.9 Type 2 diabetes mellitus without complications; I11.0 Hypertensive heart disease with heart failure; I50.9 Heart failure, unspecified; F43.10 Post-traumatic stress disorder, unspecified; J44.9 Chronic obstructive pulmonary disease, unspecified; E03.9 Hypothyroidism, unspecified; Z20.828 Contact with and (suspected) exposure to other viral communicable diseases; Z72.0 Tobacco use; Z79.899 Other long term (current) drug therapy
CPT/HCPCS: 0241U; 36415; 36600; 70450; 71045; 80048; 80053; 80307; 81015; 82375; 82550; 82803; 82947; 83036; 83605; 83690; 83735; 83880; 84145; 84484; 85025; 85027; 93005; 93306; 93880; 94640; 94760; 96365; 96366; 96367; 96374; 96375; 99285; 99291; J1817; J1940; J1956; J2405; J2920; J2930; J3010; J3475; A9270-GY